=== PATIENT | female | born 1955 | race Two or more races ===

== ENCOUNTER 2023-04-29 00:06 | Emergency (ER) | payer MEDICARE, OTHER, SELFPAY ==
[2023-04-29 00:10] VITALS: BP 156/76; PULSE 86; RESP 20; TEMP 36.8; O2SAT 99; BMI 27.7
--- NOTE | 2023-04-29 00:21 | XR_ITS ---
The [address] [address] Patient Name: DAISY CARLSON MRN: [id number] date: 1955 Sex: F Assigned Patient Location: ED.MAIN Current Patient Location: ED.MAIN Accession/Order Number: [id number] Exam Date: 04/29/2023 00:30 Report Date: 04/29/2023 01:17 At the request of: LUKE NGUYEN Procedure: XR chest 1V EXAMINATION: XR chest 1V HISTORY: sob dyspnea, chest tightness. COMPARISON: 11/06/2022 FINDINGS: There is no focal airspace consolidation. There is no appreciable pneumothorax or pleural effusion. The pulmonary vascularity is within normal limits for technique. The cardiomediastinal silhouette is within normal limits. XR/XR chest 1V IMPRESSION: Lungs are clear. No acute cardiopulmonary disease. Electronically authenticated by: OCTAVIANO HERNANDEZ Date: 04/29/2023 01:17
--- NOTE | 2023-04-29 00:21 | ECG_ITS ---
The [facility] Test Date: 2023-04-29 Pat Name: Johana Gottlieb Department: Room: - Gender: Female R D Internship: : 1955 Requested By: [id number] Order Number: [id number] Reading MD: SHIRA WALTERS Measurements Intervals [place] Rate: 79 P: 23 IA: 156 QRS: 37 QRSD: 86 T: 61 QT: 348 QTc: 382 Interpretive Statements 1100 Sinus rhythm 9110 normal ECG No previous ECG available for comparison Electronically Signed On 04-30-2023 18:24:39 EDT by SHIRA WALTERS
[2023-04-29 00:40] LABS: Basophils Absolute Auto 0.1 10^3/uL (0.0-0.1); Basophils Percent Auto 0.9 % (0.2-2.0); Eosinophils Absolute Auto 0.2 10^3/uL (0.0-0.7); Eosinophils Percent Auto 2.6 % (0.9-7.0); Hematocrit 36.2 % (36.0-48.0); Hemoglobin 11.8 g/dL (12.0-16.0); Immature Granulocytes Abs Auto 0.01 10^3/uL (0.00-0.03); Immature Granulocytes Pct Auto 0.2 % (0.0-0.5); Lymphocytes Absolute Auto 2.2 10^3/uL (1.2-3.8); Lymphocytes Percent Auto 38.5 % (20.5-60.0); Mean Corpuscular HGB Conc 32.6 g/dL (29.9-35.2); Mean Corpuscular Hemoglobin 29.8 pg (26.7-34.0); Mean Corpuscular Volume 91.4 fL (81.0-99.0); Mean Platelet Volume 9.3 fL (9.5-13.5); Monocytes Absolute Auto 1.2 10^3/uL (0.3-0.8); Monocytes Percent Auto 21.2 % (1.7-12.0); Neutrophils Absolute Auto 2.1 10^3/uL (1.4-6.5); Neutrophils Percent Auto 36.6 % (43.0-75.0); Platelet Count 323 10^3/uL (150-450); Red Blood Count 3.96 10^6/uL (4.20-5.40); Red Cell Distribution Width 14.1 % (11.0-15.0); White Blood Count 5.8 10^3/uL (4.0-11.0)
[2023-04-29 00:54] LABS: Alanine Aminotransferase 62 U/L (14-59); Albumin Globulin Ratio 0.9; Alkaline Phosphatase 112 U/L (46-116); Anion Gap 10.8; Aspartate Amino Transferase 69 U/L (15-37); Bilirubin Total 0.5 mg/dL (0.2-1.0); Calcium 9.5 mg/dL (8.5-10.1); Carbon Dioxide 28.3 mmol/L (21.0-32.0); Chloride 102 mmol/L (98-107); D Dimer 0.54 mg/L FEU (<=0.59); Estimated GFR (African America >60 (>=60); Estimated GFR (Non-African Ame >60 (>=60); Globulin 4.4 g/dL; Glucose 96 mg/dL (74-106); Potassium 4.1 mmol/L (3.5-5.1); Sodium 137 mmol/L (136-145); Total Protein 8.4 g/dL (6.4-8.2)
[2023-04-29 00:57] VITALS: PULSE 84; RESP 17; O2SAT 99
[2023-04-29 00:57] LABS: Troponin I High Sensitivity 4.2 pg/mL (4.0-51.3)
[2023-04-29] MEDS: ALBUTEROL SULFATE 2.5 MG/3 ML VIAL NEB IH ×2 (00:57→03:15)
--- NOTE | 2023-04-29 01:40 | ED.SOB1 ---
HPI - SOB/Dyspnea General Chief Complaint: Shortness of Breath/Dyspnea Stated Complaint: covid + Time Seen by Provider: 04/29/23 00:21 Source: patient Mode of arrival: walk-in Limitations: no limitations History of Present Illness HPI Narrative: The patient is coming to us with retrosternal pressure-like feeling that is associated with taking a deep breath that started a few hours earlier she was diagnosed with COVID-19 almost 2 days ago when she was started on Paxil with as well The patient denies any nausea vomiting and decreased p.o. intake she has been hydrating well and she also denies any diarrhea She does have history of asthma and she does not have her albuterol inhaler Related Data Previous Rx's Medication Instructions Recorded albuterol sulfate 90 mcg/actuation 2 inh inhalation Q6H PRN shortness 04/29/23 aerosol inhaler of breath or wheezing #8.5 grams Allergies Allergy/AdvReac Type Severity Reaction Status Date / Time No Known Drug Allergies Allergy Verified 04/29/23 00:18 Review of Systems ROS Status of ROS 10 or more systems reviewed and unremarkable except as noted in history and below PFSH PFS Social History Smoking status: Never smoker Exam Narrative Exam Narrative: Nurses notes and vital signs reviewed and patient is not hypoxic. General: Well-appearing and in no apparent distress. Skin: Warm, dry, no pallor noted. No rash. Head: Normocephalic, atraumatic. Neck: Supple, non-tender. Eye: Pupils are equal, round and EOMI. No scleral icterus. Ears, Nose, Mouth, and Throat: TM are clear, no nasal mucosal hypertrophy. Oral mucosa is moist, no posterior oropharynx erythema, uvula is mid-line Cardiovascular: Regular Rate and Rhythm without murmur, gallop or rub. Respiratory: No accessory muscle use or respiratory distress. Lungs decreased air entry in the bases and no wheezes Chest Wall: no tenderness Back: No midline thoracic or lumbar vertebral tenderness. No CVA tenderness Musculoskeletal: normal ROM, no calf or popliteal tenderness, no lower extremity edema/swelling GI: Abdomen is soft, non-distended. Normal bowel sounds. No masses appreciated. No tenderness to palpation. No rebound, guarding, or rigidity noted. Neurological: A&O x4. No cranial nerve dysfunction observed. No truncal ataxia. Moves all extremities. Sensation intact. Psychiatric: Cooperative and interactive. Normal mood and affect. Constitutional Vital Signs, click to edit/add: Last Vital Signs Temp 98.2 F 04/29/23 00:10 Pulse 90 04/29/23 03:15 Resp 18 04/29/23 03:15 BP 156/76 H 04/29/23 00:10 Pulse Ox 99 04/29/23 03:15 O2 Del Method Room Air 04/29/23 00:57 Course Vital Signs Vital signs: Vital Signs Temperature 98.2 F 04/29/23 00:10 Pulse Rate 86 04/29/23 00:10 Respiratory Rate 20 04/29/23 00:10 Blood Pressure 156/76 H 04/29/23 00:10 Pulse Oximetry 99 04/29/23 00:10 Oxygen Delivery Method Room Air 04/29/23 00:10 Temperature 98.2 F 04/29/23 00:10 Pulse Rate 90 04/29/23 03:15 Respiratory Rate 18 04/29/23 03:15 Blood Pressure 156/76 H 04/29/23 00:10 Pulse Oximetry 99 04/29/23 03:15 Oxygen Delivery Method Room Air 04/29/23 00:57 MDM - SOB/Dyspnea MDM Narrative Medical decision making narrative: The patient EKG upon presentation showing sinus rhythm with a heart rate of [address] elevation or depression CBC and chemistry showed no acute pathology and the patient chest x-ray was within normal Troponin repeated twice is negative and the patient was feeling much better after breathing treatment and Solu-Medrol I did not provide the patient with a prescription for prednisone due to the fact that she take Paxlovid to avoid interaction Right now the patient will be discharged home with her albuterol inhaler to use as needed The patient is to follow up with primary care physician in next 2-3 days or to return to the emergency department should any of the signs or symptoms worsen or new symptoms develop. The patient agrees with the following Diagnosis and Treatment plan and the patient will be discharged home. Lab Data Labs: Lab Results 04/29/23 04/29/23 Range/Units 00:30 02:50 WBC 5.8 (4.0-11.0) 10^3/uL RBC 3.96 L (4.20-5.40) 10^6/uL Hgb 11.8 L (12.0-16.0) g/dL Hct 36.2 (36.0-48.0) % MCV 91.4 (81.0-99.0) fL MCH 29.8 (26.7-34.0) pg MCHC 32.6 (29.9-35.2) g/dL RDW 14.1 (11.0-15.0) % Plt Count 323 (150-450) 10^3/uL MPV 9.3 L (9.5-13.5) fL Neut % (Auto) 36.6 L (43.0-75.0) % Lymph % (Auto) 38.5 (20.5-60.0) % [place] % (Auto) 21.2 H (1.7-12.0) % Eos % (Auto) 2.6 (0.9-7.0) % Baso % (Auto) 0.9 (0.2-2.0) % Neut # (Auto) 2.1 (1.4-6.5) 10^3/uL Lymph # (Auto) 2.2 (1.2-3.8) 10^3/uL [place] # (Auto) 1.2 H (0.3-0.8) 10^3/uL Eos # (Auto) 0.2 (0.0-0.7) 10^3/uL Baso # (Auto) 0.1 (0.0-0.1) 10^3/uL Abs Immat Gran (auto) 0.01 (0.00-0.03) 10^3/uL Imm/Tot Granulo (auto) 0.2 (0.0-0.5) % D-Dimer 0.54 (<=0.59) mg/L FEU Sodium 137 (136-145) mmol/L Potassium 4.1 (3.5-5.1) mmol/L Chloride 102 (98-107) mmol/L Carbon Dioxide 28.3 (21.0-32.0) mmol/L Anion Gap 10.8 BUN 8.0 (7.0-18.0) mg/dL Creatinine 0.80 (0.55-1.02) mg/dL Est GFR ( Amer) >60 (>=60) Est GFR (Non-Af Amer) >60 (>=60) BUN/Creatinine Ratio 10.0 Glucose 96 (74-106) mg/dL Calcium 9.5 (8.5-10.1) mg/dL Total Bilirubin 0.5 (0.2-1.0) mg/dL AST 69 H (15-37) U/L ALT 62 H (14-59) U/L Alkaline Phosphatase 112 (46-116) U/L Troponin I High Sens 4.2 4.1 (4.0-51.3) pg/mL Total Protein 8.4 H (6.4-8.2) g/dL Albumin 4.0 (3.4-5.0) g/dL Globulin 4.4 g/dL Albumin/Globulin Ratio 0.9 Discharge Plan Discharge Chief Complaint: Shortness of Breath/Dyspnea Clinical Impression: Asthma exacerbation, COVID-19 Patient Disposition: Home, Self-Care Time of Disposition Decision: 03:20 Condition: Good Mode of Transportation: Private Vehicle Prescriptions / Home Meds: New albuterol sulfate 90 mcg/actuation HFA aerosol inhaler 2 inh inhalation Q6H PRN (Reason: shortness of breath or wheezing) Qty: 8.5 0RF Instructions: Asthma (ED), COVID-19 (Coronavirus Disease 2019) (ED) Stand Alone Forms: Portal Instructions Referrals: SILVIA SINCLAIR [Primary Care Provider] - 1 week
[2023-04-29 03:11] LABS: Troponin I High Sensitivity 4.1 pg/mL (4.0-51.3)
[2023-04-29 03:15] VITALS: PULSE 90; RESP 18; O2SAT 99
[2023-04-29] MEDS: METHYLPREDNISOLONE SOD SUCC PF 125 MG/2 ML VIAL 60 MG IVP (03:27)
[2023-04-29] MEDS: ALBUTEROL SULFATE 200 PUFF/6.7 GM INHALER IH (03:37)
--- NOTE | 2023-04-29 04:17 | RESP.RT ---
2 puffs given and MDI sent home with patient
== END 2023-04-29 03:40 | disposition home or self-care (01) ==
PROVIDERS: Emergency Provider Emergency Medicine; PCP Family Medicine
DX: J45.901 Unspecified asthma with (acute) exacerbation (principal); U07.1 COVID-19
CPT/HCPCS: 36415; 71045; 80053; 84484; 85025; 85378; 93005; 94640; 96374; 99285; J2930

== ENCOUNTER 2025-03-03 12:53 | Emergency (ER) | payer MEDICARE, OTHER, SELFPAY ==
[2025-03-03 12:57] VITALS: BP 125/72; PULSE 94; TEMP 36.8; O2SAT 98; BMI 30.3
--- OUTSIDE RECORDS SUMMARY | 2025-03-03 13:00 | XMS_ITS | Encounter Summary ---
Author Organization [facility] [facility] tem Address [id number] [address] [place] [address] Care Team Providers Care Case Loader Operator Name Role Phone Anabell Prescott MD Primary Care Provider [phone] Encounter Details Date Type Department Care Team (Latest Contact Info) Description 02/21/2025 Travel Social History Tobacco Use Types Packs/Day Years Used Date Smoking Tobacco: Former Cigarettes 1999 Smokeless Tobacco: Never Comments:quit > 20 years ago Alcohol Use Standard Drinks/Week Comments No 0 (1 standard drink = 0.6 oz pur e alcohol) Childcare Answer Date Recorded Childcare Unknown 03/13/2019 Employment Answer Date Recorded Employment Unknown 03/13/2019 Hunger Screening Answer Date Recorded Within the past 12 months we worried whether our food would run out before we got money to buy more. Never True 10/23/2024 Within the past 12 months th e food we bought just didn't last and we didn't have money to get more. Never True 10/23/2024 Purpose - Life Answer Date Recorded Purpose and direction in life Unknown Comments No Sex and Gender Information Value Date Recorded Sex Assigned at Female 01/02/2023 9:46 AM EDT Legal Sex Female 11:26 AM EDT Gender Identity Female 01/02/2023 9:46 AM EDT Sexual Orientation Straight 01/02/2023 9: 46 AM EDT documented as of this encounter Plan of Treatment Upcoming Encounters Date Type Department Care Team (Late st Contact Info) Description 10/27/2025 1:15 PM EST Office Visit [facility] [address] [facility] [place] [address] [phone] Alejandro Vega MD [address] [place] [address] documented as of this encounter Visit Diagnoses Not on filedocumented in this encounter Care Teams Case Loader Operator Relationship Specialty Start Date End Date Anabell Prescott MD [address] [place] [address] PCP - General Family Medicine 06/16/17 documented as of this encounter
--- OUTSIDE RECORDS SUMMARY | 2025-03-03 13:00 | XMS_ITS | Encounter Summary ---
Author Organization [facility] Address [address] [place] [address] Care Team Providers Care Machine Ceramic Coater Name Role Phone Anabell Prescott MD Unavailable [phone] Anabell Prescott MD Primary Care Provider [phone] Encounter Details Date Type Department Care Team (Late st Contact Info) Description 10/12/2023 External Result Encounter [facility] External Department Unsolicited Russ Pacheco, DO [address] [place] [address] Social History Tobacco Use Types Packs/Day Years Used Date Smoking Tobacco: Never Smokeless Tobacco: Never Alcohol Use Standard Drinks/Week Comments Not Currently 0 (1 standard drink = 0.6 oz pure alcohol) Caffeine intake : 1-2 cups per day tea Humiliation, Afraid, Rape, and Kick questionnair e Answer Date Recorded Within the last year, have y ou been afraid of your partner or ex-partner? No 10/09/2023 Within the last year, have y ou been humiliated or emotionally abused in other ways by your partner or ex-partner? No Within the last year, have y ou been kicked, hit, slapped, or otherwise physically hurt by your partner or ex-partner? No 10/09/2023 Within the last year, have y ou been raped or forced to have any kind of sexual activity by your partner or ex-partner? No 10/09/2023 Social Connection and Isolat ion Panel [NHANES] Answer Date Recorded In a typical week, how many times do you talk on the phone with family, friends, or neighbors? Twice a week 10/09/2023 How often do you get togethe r with friends or relatives? Once a week 10/09/2023 How often do you attend chur or sikhism services? More than 4 times per year 10/09/2023 Do you belong to any clubs o r organizations such as anabaptist groups, unions, fraternal or athletic groups, or school groups? No 10/09/2023 How often do you attend meet ings of the clubs or organizations you belong to? Never 10/09/2023 Are you , , di vorced, , never , or living with a partner? Living with partner 10/09/2023 AUDIT-C Answer Date Recorded Frequency of Alcohol Consumption Not on file 10/09/2023 Q2: How many drinks containi ng alcohol do you have on a typical day when you are drinking? Patient does not drink Q3: How often do you have si x or more drinks on one occasion? Never 10/09/2023 Overall Financial Resource Strain (CARDIA) Answe r Date Recorded How hard is it for you to pa y for the very basics like food, housing, medical care, and heating? Not hard at all 10/09/2023 PHQ-2 Answer Date Recorded Patient Health Questionnaire-2 Score 0 09/22/2023 [facility] Questionnaire Answer Date Recorded Do you feel stress - tense, restless, nervous, or anxious, or unable to sleep at night because your mind is troubled all the time - these days? Not at all 10/09/2023 Exercise Vital Sign Answer Date Recorde d On average, how many days pe r week do you engage in moderate to strenuous exercise (like a brisk walk)? 3 days 10/09/2023 On average, how many minutes do you engage in exercise at this level? 40 min 10/09/2023 Hunger Vital Sign Answer Date Recorded Within the past 12 months, y ou worried that your food would run out before you got the money to buy more. Never true 10/09/19 24 Within the past 12 months, t he food you bought just didn't last and you didn't have money to get more. Never true 10/09/2023 PRAPARE - Transportation Answer Date Re corded In the past 12 months, has l ack of transportation kept you from medical appointments or from getting medications? No 05/2024 In the past 12 months, has l ack of transportation kept you from meetings, work, or from getting things needed for daily living? No 10/09/2023 Housing Stability Vital Sign Answer Jose e Recorded In the last 12 months, was t here a time when you were not able to pay the mortgage or rent on time? No 10/09/2023 In the last 12 months, how many places have you lived? 1 10/09/2023 In the last 12 months, was t here a time when you did not have a steady place to sleep or slept in a chcf (including now)? No 10/09/2023 Comments Unknown Sex and Gender Information Value Date Recorded Sex Assigned at Female 02/28/2023 3:18 PM EDT Legal Sex Female 6:34 PM EDT Gender Identity Female 02/28/2023 3:18 PM EDT Sexual Orientation Straight 02/28/2023 3: 18 PM EDT Occupation Industry Job Start Date Job End Date retiredd Not on file Not on file Not on file documented as of this encounter Plan of Treatment Not on file documented as of this encounter Procedures Procedure Name Priority Date/Time Associated Diagnosis Comments ECG 12-LEAD 10/12/2023 3:39 PM EST documented in this encounter Results * ECG 12 lead (10/12/2023 3:39 PM EST) 10/12/2023 3:39 PM EST [facility] - 10/14/2023 1:31 AM EST [facility] Main [place] [id number] Electrocardiograph Report Signed Patient: Johana Gottlieb MR#: [id number] 3 : 1955 Acct:[id number] Age/Sex: 67 / F ADM Date: 10/12/23 Loc: PS Room: Type: [facility] CLI Attending Dr: Russ Pacheco DO Ordering Provider: Russ Pacheco DO Date of Service: 10/12/2308/25/1527 ECG/ECG 12 lead ECG: PST Copies to: Test Reason : Blood Pressure : / mmHG Vent. Rate : 070 BPM Atrial Rate : 070 BPM P-R Int : 130 ms QRS Dur : 090 ms QT Int : 394 ms P-R-T Axes : 024 034 051 degrees QTc Int : 425 ms Normal sinus rhythm Cannot rule out Anterior infarct , age undetermined Abnormal ECG When compared with ECG of 31-MAR-2022 10:09, No significant change was found Confirmed by Steve Mckay ([id number]) on 10/13/2023 6:38:43 PM Referred By: GLENNY Electronically Signed By:Steve Mckay Transcribed By: MUS Signed By Steve Mckay MD 10/13/23 1838 Procedure Note Jaky Mckay MD - 10/14/2023 [facility] [place] [address] Electrocardiograph Report Signed Patient: Johana Gottlieb LMR#: [id number] 3 : 5Acct:[id number] Age/Sex: 67 / FADM Date: 10/12/23 Loc: PS Room:Type: [facility] CLI Attending Dr: Russ Pacheco DO Ordering Provider: Russ Pacheco DO Date of Service: 10/12/2308/25/1527 ECG/ECG 12 lead ECG: PST Copies to: Test Reason : Blood Pressure : / mmHG Vent. Rate : 070 BPM Atrial Rate : 070 BPM P-R Int : 130 ms QRS Dur : 090 ms QT Int : 394 ms P-R-T Axes : 024 034 051 degrees QTc Int : 425 ms Normal sinus rhythm Cannot rule out Anterior infarct , age undetermined Abnormal ECG When compared with ECG of 31-MAR-2022 10:09, No significant change was found Confirmed by Steve Mckay ([id number]) on 10/13/2023 6:38:43 PM Referred By: GLENNY Electronically Signed By:Steve Mckay Transcribed By: JORDANA Signed By Steve Mckay MD 10/13/23 5082 us Russ Pacheco DO ECG ORDERABLES Final Resul t [facility] [address] [place] [address], documented in this encounter Visit Diagnoses Not on filedocumented in this encounter Additional Health Concerns Assessment Noted Time PHQ-9 Depression Total Score: 3 09/19/20 10:42 AM EST documented as of this encounter Care Teams Machine Ceramic Coater Relationship Specialty Start Date End Date Anabell Prescott MD [address] [facility] [place] [address] PCP - ACO Reach 02/23/23 Anabell Prescott MD [address] [place] [address] PCP - General Family Medicine 03/09/23 documented as of this encounter
--- OUTSIDE RECORDS SUMMARY | 2025-03-03 13:00 | XMS_ITS | Referral Summary ---
Author Organization [facility] Address [address] [place] [address] Care Team Providers Care Seismograph Computer Name Role Phone Unavailable Primary Care Provider Unavailabl e Social History Tobacco Use Types Packs/Day Years Used Date Smoking Tobacco: Never Assessed [place] Safety & Environment Answer Date Rec orded Fear of Current or Ex-Partner Not on file Emotionally Abused Not on file 11/23/2023 Physically Abused Not on file 11/23/2023 Sexually Abused Not on file 11/23/2023 Physically or Sexually Abused Not on file Sex and Gender Information Value Date Recorded Sex Assigned at Not on file Gender Identity Not on file Sexual Orientation Not on file Plan of Treatment Not on file
--- OUTSIDE RECORDS SUMMARY | 2025-03-03 13:00 | XMS_ITS | Encounter Summary ---
Author Organization [facility] Address [address] [place] [address] Care Team Providers Care Supervisor Pleating Name Role Phone Anabell Prescott MD Unavailable Anabell Prescott MD Primary Care Provider [phone] Reason for Visit * Reason Comments Med Refill Encounter Details Date Type Department Care Team (Late st Contact Info) Description 02/22/2024 Refill [facility] [address] [place] [address] Anabell Prescott MD [address] [place], [place] [phone] Acquired hypothyroidism (CMS/HCC) (Primary Dx) Social History Tobacco Use Types Packs/Day Years Used Date Smoking Tobacco: Never Smokeless Tobacco: Never Alcohol Use Standard Drinks/Week Comments Not Currently 0 (1 standard drink = 0.6 oz pure alcohol) Caffeine intake : 1 cups per day tea Humiliation, Afraid, Rape, [...] 10/09/2023 How often do you attend chur ch or tenriism services? More than 4 times per year [...] Date Recorded Patient Health Questionnaire-2 Score 0 02/19/2024 [facility] - Occupational Stress Questionnaire Answer Date Recorded [...] place to sleep or slept in a assisted (including now)? No 10/09/2023 Comments Unknown Sex [...] on file documented as of this encounter Visit Diagnoses Diagnosis Acquired hypothyroidism (CMS/HCC)- Primary Unspecified hypothyroidism documented in this encounter Additional Health Concerns Assessment Noted Time PHQ-9 Depression Total Score: 3 09/19/20 23 10:42 AM EST documented as of this encounter Care Teams Supervisor Pleating Relationship Specialty Start Date End Date Anabell Prescott MD [address] [place] [address] PCP - ACO Reach 02/23/23 Anabell Prescott MD [address] [place] [address] PCP - General Family Medicine 03/09/23 documented as of this encounter
--- OUTSIDE RECORDS SUMMARY | 2025-03-03 13:00 | XMS_ITS | Encounter Summary ---
Author Organization [facility] Address [address] [place] [address] Care Team Providers Care Environmental Services Technician Name Role Phone Anabell Prescott MD Unavailable Anabell Prescott MD Primary Care Provider [phone] Reason for Visit * Reason Comments Med Refill Encounter Details Date Type Department Care Team (Late st Contact Info) Description 05/19/2023 Refill [facility] [address] [place] [address] Anabell Prescott MD [address] [place], [place] [phone] Major depressive disorder, recurrent episode, moderate (HCC) (CMS/HCC) (Primary Dx) Social History Tobacco Use Types Packs/Day Years Used Date Smoking Tobacco: Never Smokeless Tobacco: Never Alcohol Use Standard Drinks/Week Comments Never 0 (1 standard drink = 0.6 oz pur e alcohol) caffeine: 1-2 cups per day tea PHQ-2 Answer Date Recorded Patient Health Questionnaire-2 Score 2 03/22/2023 Comments Unknown Sex and Gender Information Value Date Recorded Sex Assigned at Female 02/28/2023 3:18 PM EDT Legal Sex Female 6:34 PM EDT Gender Identity Female 02/28/2023 3:18 PM EDT Sexual Orientation Straight 02/28/2023 3: 18 PM EDT Occupation Industry Job Start Date Job End Date retiredd Not on file Not on file Not on file documented as of this encounter Miscellaneous Notes * Telephone Encounter - Anabell Prescott MD - 05/19/2023 4:40 PM EDT Approving, but needs appt for additional refills. documented in this encounter Plan of Treatment Not on file documented as of this encounter Visit Diagnoses Diagnosis Major depressive disorder, recurrent episode, moderate (CMS/[facility])- Primary Major depressive disorder, recurrent episode, moderate documented in this encounter Care Teams Environmental Services Technician Relationship Specialty Start Date End Date Anabell Prescott MD [address] [place] [address] PCP - ACO Reach 02/23/23 Anabell Prescott MD [address] [place] [address] PCP - General Family Medicine 03/09/23 documented as of this encounter
--- OUTSIDE RECORDS SUMMARY | 2025-03-03 13:00 | XMS_ITS | Encounter Summary ---
Author Organization [employer] Address [id number] [address] [place] [address] Care Team Providers Care Tool Hardener Name Role Phone Anabell Prescott MD Primary Care Provider [phone] Reason for Visit * Reason Comments Med Refill Encounter Details Date Type Department Care Team (Late st Contact Info) Description 09/19/2023 Refill [facility] [address] [place] [address] [place] [address] [place] [phone] Alejandro Vega MD [address] [place] [address] Stress incontinence of urine Social History Tobacco Use Types Packs/Day Years Used Date Smoking Tobacco: Former Cigarettes 1 993 - 1999 Smokeless Tobacco: Never Comments:quit > 20 [...] got money to buy more. Never True 08/28/2023 Within the past 12 months th e food we bought just didn't last and we didn't have money to get more. Never True 08/28/2023 Purpose - Life Answer Date Recorded Purpose [...] Description 10/27/2025 1:15 PM EST Office Visit [facility] [address] [place] [address] [place] [address] [place] [phone] Alejandro Vega MD [address] [place] [id number] documented as of this encounter Visit Diagnoses Diagnosis Stress incontinence of urine documented in this encounter Care Teams Tool Hardener Relationship Specialty Start Date End Date Anabell Prescott MD [address] [place], [place] [phone] PCP - General Family Medicine 06/16/17 documented as of this encounter
--- OUTSIDE RECORDS SUMMARY | 2025-03-03 13:00 | XMS_ITS | Clinical Summary ---
Author Organization [employer] tem Address [id number] [address] [place] [address] Care Team Providers Care Bridge Crane Operator Name Role Phone Anabell Prescott MD Primary Care Provider [phone] Allergies Active Allergy Reactions Criticality Noted Date Comments Latex, Natural Rubber 04/17/2023 rash Medications albuterol (PROVENTIL HFA;VENTOLIN HFA) 90 mcg/actuation inhaler Inhale 2 puffs every 6 (six) hours as needed for wheezing. Has not used since 11/2020 Active levothyroxine (SYNTHROID, LEVOTHROID) 100 MCG tablet Take 1 tablet (100 mcg total) by mouth in the morning. Active traZODone (DESYREL) 100 mg tablet Take 1 tablet (100 mg total) by mouth as needed. Has not used since 11/2020 Active omeprazole (PriLOSEC) 40 mg capsule Take 1 capsule (40 mg total) by mouth in the morning. 1 Active plecanatide (TRULANCE) 3 mg tablet Take 3 mg by mouth in the morning. Active alendronate (FOSAMAX) 70 mg/75 mL solution Take 75 mL (70 mg total) by mouth every 7 days. In a.m. with water on empty stomach, nothing else by mouth and remain upright for 30min Active oxaprozin (DAYPRO) 600 mg tablet Take 1 tablet (600 mg total) by mouth in the morning and 1 tablet (600 mg total) in the evening. Take with meals. 3 Active traMADoL (ULTRAM) 50 mg tablet Take 1 tablet (50 mg total) by mouth 2 (two) times a day as needed. 3 Active fluticasone propionate (FLOVENT HFA) 110 mcg/actuation inhalerIndicati ons:maintenance therapy for asthma Inhale 1 puff in the morning and 1 puff before bedtime. Indications: controller medication for asthma. As needed. Active FLUoxetine (PROzac) 20 mg capsule take 1 capsule by mouth every morning Active atorvastatin (LIPITOR) 20 mg tablet take 1 tablet by mouth every morning 90 tablet 4 Active cefaDROXil (DURICEF) 500 mg capsule Take 1 capsule (500 mg total) by mouth in the morning and 1 capsule (500 mg total) before bedtime. Do all this for 7 days. 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 Does have very good urine volume. Super saturation numbers are reasonable. Citrate excellent as well. Plan: Can maintain this hydration status this point will monitor. KUB 1 year ==== 06/21/2023 ==== will initiate 24 hr litho link x1. Ca++ 9.07 March 2023 ==== 03/22/2023 ==== after treatment of her current stone the right probably initiate repeat mineral metabolism workup after her parathyroidectomy. ==== 06/13/2022 ==== #### April 05, 2022 had 1 parathyroid removed. Result in serum calcium slightly above 10 parathyroid hormone lower than previous and within normal range. ==== 06/02/2021 ==== parathyroid hormone normal high normal but normal serum calcium high normal. Interestingly urinary calcium is fine super saturation number slightly high primarily driven by both citrate as well as urine volume. Plan: Drink enough to make 2 to 2.5 L urine a day. Citrate supplementation in addition to the lemonade she is consuming. Return clinic 1 year KUB ==== 04/21/2021 ==== New problem, additional workup planned. multiple stones over years. Serum calcium high normal as well. Plan: 24 urine litho link. Parathyroid hormone. Repeat serum calcium. Stress incontinence 10/28/2020 Increased urinary frequency 05/23/2018 Overview (10/28/2020): ====10/28/20==== recent issues with stress incontinence and increased frequency on tolterodine 2mg. We will increase her to 4mg daily. She will also work on pelvic floor exercises. We discussed that cystoscopy/urodynamics may be necessary before determining further management. ==== 05/23/2018 ==== history over time of urinary frequency. Variable strength stream. Nocturia. His on tolterodine 2 mg. Has had some benefit but still bothered by her lower urinary tract domain. History of stones in the past as well. ==== 08/01/2018 ==== ### s/p cysto and urethral dilation and U-M solution---has had acceptable improvement in her symptoms. ==== 11/07/2018 ==== by patient report her symptoms are stable and acceptable Assessment & Plan (10/28/2020 9:51 AM EST): We will schedule her to see Dr. Vega in about 1-2 months. I asked her to call sooner if any problems. Assessment & Plan (08/01/2018 11:59 AM EDT): This point will hold off on monitor. See her back in 3 mo. Stay on tolterodine Kidney stones 05/23/2018 Overview (10/23/2024): ====10/23/24====Stable stones on KUB. Has had some abdominal cramping and there was an area of opacification in the left hemipelvis on KUB. She would like to proceed with CT ==== 06/21/2023 ==== right stone treated. Stent removal. Bilateral jets noted on ultrasound that demonstrates antegrade flow. Potential very small residual calculi after Laser lithotripsy. ==== 03/22/2023 ==== right UPJ stone. 5 mm. The few weeks back she did have elevated white count no fevers no chills. Urinalysis not impressive. Plan: Continue on medical expulsive therapy. Urine for culture.. Duricef. Plan for right ureteroscopy to treat the stone in the ureter as well as the larger stones that are nonobstructing. Pt agrees with plan. ====02/15/23==== recent right-sided back pain. We will send urine for microscopic exam and culture. We will check KUB. In the meantime, she will start Flomax and will strain her urine ==== 04/21/2021 ==== #### s/p left ureteroscopy holmium laser lithotripsy left stent. Left stent removal. Follow-up renal ultrasound negative for hydronephrosis ====02/17/21====See below. Stone is visible on KUB. No obvious right ureteral stone ====02/17/21====5mm proximal left ureteral stone along with several intrarenal stones. Requesting ESWL and would like to avoid ureteroscopy if possible. Will check KUB to see if she would be a good candidate. ====10/29/20====BMP and PTH normal. KUB with 2 stones in each kidney-will address at follow-up ====10/28/20==== no recent issues. She thinks she was diagnosed with hypercalcemia but doesn't remember details. We will have her get a KUB. We will also check BMP and PTH. I will call her with the results. ==== 05/23/2018 ==== history kidney stones in the past. Distal right ureteroscopy in 2013- by Dr. Salazar. ==== 08/01/2018 ==== renal ultrasound discuss is bilateral calculi. Ultrasound can certainly over call stones. Will see her back in 3 months with a KUB. ==== 11/07/2018 ==== no interval colic. No acute KUB done yet. Will obtain KUB in 6 months Assessment & Plan (10/23/2024 1:52 PM EST): I will notify her of the CT results through [facility]. Assuming this is unremarkable, we will see her back in 1 year with a KUB Assessment & Plan (02/15/2023 5:10 PM EDT): She says she does have some tramadol on hand in case it is needed. Assessment & Plan (02/17/2021 1:30 PM EDT): I told her to return to the ER if fever or uncontrolled symptoms. She did start to have some right-sided abdominal pain as well. We will look for movement of any of her stones on her x-ray today. I stressed importance of going to the ER immediately if anuria. I did do her preop history and physical in the office today. We will get an EKG as well in preparation for surgery Assessment & Plan (10/28/2020 9:52 AM EST): UA today does dip for trace blood. We will send for microscopic exam and call her if positive Assessment & Plan (05/23/2018 3:41 PM EDT): Will see what renal bladder ultrasound demonstrates Encounters Date Type Department Care Team Description 02/21/2025 Travel 02/20/2025 Telephone [facility] [address] [place] [address] Sammi Hernandez CMA 02/19/2025 Travel from Last 3 Months Family History Medical History Relation Name Comments Other Brother 1 MVA Breast cancer Cousin Prostate cancer Father juan mcpherson also had stomach cancer Arthritis Mother nasra mcpherson Cancer Mother nasra mcpherson Throat cancer Mother nasra mcpherson Anesthesia problems Neg Hx Bleeding Disorder Neg Hx Clotting disorder Neg Hx Colon cancer Neg Hx Heart attack Neg Hx Nephrolithiasis Neg Hx Ovarian cancer Neg Hx Stroke Neg Hx Relation Name Status Comments Brother 1 Brother 2 Alive Brother 3 Alive Brother 4 Alive Cousin Father juan mcpherson Alive Maternal Grandfather Maternal Grandmother Mother nasra mcpherson Paternal Grandfather Paternal Grandmother Sister 1 Alive Sister 2 Alive Social History Tobacco Use Types Packs/Day Years Used Date Smoking Tobacco: Former Cigarettes 1 - 1999 Smokeless Tobacco: Never Tobacco Cessation:Counseling Given: Not Answered Comments:quit > 20 years ago Alcohol Use [...] Orientation Straight 01/02/2023 9: 46 AM EDT Last Filed Vital Signs Vital Sign Reading Time Taken Comments Blood Pressure 113/77 10/23/2024 1:35 PM EST Pulse 77 10/23/2024 1:35 PM EST Temperature 36.5 C (97.7 F) 06/08/2023 10:32 AM EDT Respiratory Rate 16 06/08/2023 12:10 PM EDT Oxygen Saturation 100% 06/08/2023 12:10 PM EDT Inhaled Oxygen Concentration - - Weight 70.3 kg (155 lb) 10/23/2024 1:35 PM EST Height 152.4 cm (5') 10/23/2024 1:35 PM EST Body Mass Index 30.27 10/23/2024 1:35 PM EST Plan of Treatment Upcoming Encounters Date Type Department Care Team (Late st Contact Info) Description 10/27/2025 1:15 PM EST Office Visit [facility] [address] [place] [address] [address] [facility] [place] [address] Alejandro Vega MD [address] [place] [address] Health Maintenance Due Date Last Done Comments Depression Screening 1967 Adult BMI Follow Up Plan 1972 Fall Risk Screening 12/12/2019 DTaP,Tdap and Td Vaccines (3 - Td or Tdap) 11/08/2023 11/08/2013, 10/02/1997 COVID-19 Vaccine (2023-2 5 season) 2024 07/01/2024, 09/22/2023, 06/12/2023, Additional history exists Influenza Vaccine 06/02/2025 07/01/2024, , 07/19/2022, Additional history exists Adult BMI Screening 10/23/2025 10/23/2024 Tobacco Screening 10/23/2025 10/23/2024 Zoster (Shingles) Vaccine Completed 2021, 07/19/2022, 04/28/2014 Medical Devices Explanted Type Area Tow Driver Device Identifier Shelf Expiration Date Model / Serial / Lot Stnt Uret 6fr 26cm Pgtl Crv - [id number] - [id number] Implanted:Qty: 1 on 02/19/2021 by Alejandro Vega MD at [facility] Explanted:Qty: 1 on 03/03/2021 by Alejandro Vega MD at [facility] Stent Left: Ureter [employer]ovo UROLOGY 11/05/2023 [id number] / [id number] / [id number] Stent Uret 6fr 26cm 2 Pgtl Crv Rdpq Pstnr Brd [facility] [id number] - [id number] Implanted:Qty: 1 on 05/26/2023 by Alejandro Vega MD at [facility] Explanted:Qty: 1 on 06/01/2023 by Alejandro Vega MD at [facility] Stent Right: Ureter [employer] UROLOGICAL 04/21/2026 [id number] / / [id number] [employer] Implanted:Qty: 1 on 06/01/2023 by Alejandro Vega MD at [facility] Explanted:Qty: 1 on 06/08/2023 by Alejandro Vega MD at [facility] Stent Right: Ureter [employer] 04/28/2026 [id number] / 6*26 / [id number] Description:no string Procedures Procedure Name Priority Date/Time Associated Diagnosis Comments URINALYSIS Routine 02/21/2025 1:56 PM EDT Burning with urination URINE CULTURE Routine 02/21/2025 1:56 PM EDT Burning with urination from Last 3 Months Results * (ABNORMAL) Urinalysis (02/21/2025 1:56 PM EDT) COLOR Colorless Yellow, Colorless 02/21/2025 5:57 PM EDT [facility] TURBIDITY Clear Clear 02/21/2025 5:57 PM EDT [facility] SPECIFIC GRAVITY 1.006 1.003 - 1.035 02/21/2025 5:57 PM EDT [facility] NITRITE Negative Negative 02/21/2025 5:57 PM EDT [facility] PH,URINE 6.5 5.0 - 8.5 02/21/2025 5:57 PM EDT [facility] LEUKOCYTE ESTERASE Large(A) Negative 02/21/2025 5:57 PM EDT [facility] PROTEIN Negative Negative 02/21/2025 5:57 PM EDT [facility] KETONES (URINE) Negative Negative 5:57 PM EDT [facility] UROBILINOGEN <1.1 eu/dL <1.1 eu/dL 02/21/2025 5:57 PM EDT [facility] BILIRUBIN (URINE) Negative Negative 02/21/2025 5:57 PM EDT [facility] BLOOD/HGB Negative Negative 02/21/2025 5:57 PM EDT [facility] MUCOUS Present(A) None 02/21/2025 5:57 PM EDT [facility] R.B.CELLS <1 0 - 5 02/21/2025 5:57 PM EDT [facility] SQUAMOUS EPITHELIUM <1 0 - 5 02/21/2025 5:57 PM EDT [facility] W.B.CELLS 24(H) 0 - 5 02/21/2025 5:57 PM EDT [facility] GLUCOSE (URINE) Negative Negative 5:57 PM EDT [facility] Urine Collection / Unknown 02/21/2025 1:56 PM EDT 02/21/2025 1:56 PM EDT Colette Blevins NEUROSCIENTIST-DIESEL FLEET MECHANIC URINE ORDERABLES Final R esult [facility] [address] [place] [address], * (ABNORMAL) Urine Culture (02/21/2025 1:56 PM EDT) CULTURE RESULTS >100,000 CFU/mL Klebsiella pneumoniae(A) 02/23/2025 12:14 PM EDT [facility] Urine Urine specimen collection, clean catch / Unknown Collection / Unknown 02/21/2025 1:56 PM EDT 02/21/2025 1:56 PM EDT Narrative Organism Antibiotic Method Susceptibility Klebsiella pneumoniae Ampicillin >=32.0: Resistant Klebsiella pneumoniae AMP/SULBACTAM 8.0: Susceptible Klebsiella pneumoniae PIPERACIL/TAZOBACTAM <=4.0: Susceptible Klebsiella pneumoniae Cefazolin (non-urinary) 2.0: Susceptible Klebsiella pneumoniae Cefazolin (urinary) 2.0: Susceptible Klebsiella pneumoniae Ceftriaxone <=0.25: Susceptible Klebsiella pneumoniae Gentamicin <=1.0: Susceptible Klebsiella pneumoniae Ciprofloxacin <=0.06: Susceptible Klebsiella pneumoniae Levofloxacin <=0.12: Susceptible Klebsiella pneumoniae Nitrofurantoin =128.0: Resistant Klebsiella pneumoniae Trimethoprim + Sulfamethoxazole <=1.0: Susceptible Colette Blevins NEUROSCIENTIST-DIESEL FLEET MECHANIC MICROBIOLOGY - GENERAL O RDERABLES Final Result [facility] [address] [place] [address], [place] [phone] from Last 3 Months Insurance MEDICARE [facility] Advance Directives Documents on File Type Date Recorded Patient Calibration Checker Expl anation Advance Directive 04/17/2023 1:27 PM Care Teams Bridge Crane Operator Relationship Specialty Start Date End Date Anabell Prescott MD [address] [place] [address] PCP - General Family Medicine 06/16/17
--- OUTSIDE RECORDS SUMMARY | 2025-03-03 13:00 | XMS_ITS | Encounter Summary ---
Author Organization [facility] Address [address] [place] [address] Care Team Providers Care Kiln Repairer Name Role Phone Anabell Prescott MD Unavailable [phone] Anabell Prescott MD Primary Care Provider Encounter Details Date Type Department Care Team (Late st Contact Info) Description 02/24/2023 Abstract [facility] [address] [place] [address] Anabell Prescott MD [address] [place], [place] [id number] Social History Tobacco Use Types Packs/Day Years Used Date Smoking Tobacco: Never Assessed Comments Unknown Sex and Gender Information Value Date Recorded Sex Assigned at Female 02/28/2023 3:18 PM EDT Legal Sex Female 6:34 PM EDT Gender Identity Female 02/28/2023 3:18 PM EDT Sexual Orientation Straight 02/28/2023 3: 18 PM EDT documented as of this encounter Plan of Treatment Not on file documented as of this encounter Visit Diagnoses Not on filedocumented in this encounter Care Teams Kiln Repairer Relationship Specialty Start Date End Date Anabell Prescott MD [address] [place] [address] PCP - ACO Reach 02/23/23 Anabell Prescott MD [address] [place] [address] PCP - General Family Medicine 03/09/23 documented as of this encounter
--- OUTSIDE RECORDS SUMMARY | 2025-03-03 13:00 | XMS_ITS | Encounter Summary ---
Author Organization [employer] Address [id number] [address] [place] [address] Care Team Providers Care Tunneling Machine Operator Name Role Phone Anabell Prescott MD Primary Care Provider [phone] Encounter Details Date Type Department Care Team (Late st Contact Info) Description 02/20[facility]20[facility] [address] [place] [address] Sammi Hernandez, [facility] Social History Tobacco Use Types Packs/Day Years [...] AM EDT documented as of this encounter Miscellaneous Notes * Telephone Encounter - Sammi [place], COCKTAIL LOUNGE MANAGER - 02/20/2025 10:37 AM EDT Pt called in stating the doors are locked at [facility], she was scheduled with li at [facility], she was transferred to [facility] to reschedule with the correct location she prefers. Li Blevins SOFTWARE SECURITY ARCHITECT said in epic chat: Can you please find out what she is coming for. IF it is just a UTI, please send her for UA/culturetoday. Thank you I called pt, no answer, LVM asking if she was coming in for UTI related SX, if so we will order UA/Culture. I told her any nurse could help her with this. Im out at noon incase I dont get her call. Pt called back, she is having burning with urination and frequency. I ordered UA/culture. She is asking for ATX with she wont have results until Monday. Please advise * Telephone Encounter - JEFFRY Santana - 02/20/2025 10:37 AM EDT Please let her know I sent Aki to [facility]. She can reschedule in [place] if she would like. I will notify her via MyChart of results on Monday when we returned to the office. She hasany worsening symptoms, I recommend she be seen in the ER. Also, please remind her to give the urine sample before starting antibiotics. Thank you * Addendum Note - Sammi Hernandez CMA - 02/20/2025 10:37 AM EDTAddended by: SAMMI HERNANDEZ on: 02/20/2025 10:43 AM Modules accepted: Orders * Addendum Note - JEFFRY Santana - 02/20/2025 10:37 AM EDTAddended by: LI BLEVINS on: 02/20/2025 11:05 AM Modules accepted: Orders documented in this encounter Plan of Treatment Upcoming Encounters Date Type Department Care Team (Late st Contact Info) Description 10/27/2025 1:15 PM EST Office Visit [facility] [address] [place] [address] [place] [address] [address] Alejandro Vega MD [facility] [place] [place] [address] documented as of this encounter Results * (ABNORMAL) Urinalysis (02/21/2025 1:56 PM EDT) COLOR Colorless Yellow, Colorless 02/21/2025 5:57 PM EDT [facility] TURBIDITY Clear Clear 02/21/2025 5:57 PM EDT [facility] SPECIFIC GRAVITY 1.006 1.003 - 1.035 02/21/2025 5:57 PM EDT [facility] NITRITE Negative Negative 02/21/2025 5:57 PM EDT [facility] PH,URINE 6.5 5.0 - 8.5 02/21/2025 5:57 PM EDT [facility] LEUKOCYTE ESTERASE Large(A) Negative 02/21/2025 5:57 PM EDT [facility] PROTEIN Negative Negative 02/21/2025 5:57 PM EDT [facility] KETONES (URINE) Negative Negative 5:57 PM EDT [facility] UROBILINOGEN <1.1 eu/dL <1.1 eu/dL 02/21/2025 5:57 PM EDT [facility] BILIRUBIN (URINE) Negative Negative 02/21/2025 5:57 PM EDT [facility] BLOOD/HGB Negative Negative 02/21/2025 5:57 PM EDT [facility] MUCOUS Present(A) None 02/21/2025 5:57 PM EDT [facility] R.B.CELLS <1 0 - 5 02/21/2025 5:57 PM EDT [facility] SQUAMOUS EPITHELIUM <1 0 - 5 02/21/2025 5:57 PM EDT [facility] W.B.CELLS 24(H) 0 - 5 02/21/2025 5:57 PM EDT [facility] GLUCOSE (URINE) Negative Negative 5:57 PM EDT [facility] Urine Collection / Unknown 02/21/2025 1:56 PM EDT 02/21/2025 1:56 PM EDT Li Blevins PHOTO MASK CLEANER-METAL POLISHER URINE ORDERABLES Final R esult [facility] [address] [place] [address], * (ABNORMAL) Urine Culture (02/21/2025 1:56 PM EDT) CULTURE RESULTS >100,000 CFU/mL Klebsiella pneumoniae(A) 02/23/2025 12:14 PM EDT [facility] Urine Urine specimen collection, clean catch [...] Klebsiella pneumoniae Trimethoprim + Sulfamethoxazole <=1.0: Susceptible Li Blevins PHOTO MASK CLEANER-METAL POLISHER MICROBIOLOGY - GENERAL O RDERABLES Final Result [facility] [address] [place] [address], documented in this encounter Visit Diagnoses Diagnosis Burning with urination- Primary Dysuria documented in this encounter Care Teams Tunneling Machine Operator Relationship Specialty Start Date End Date Anabell Prescott MD [address] [place] [address] PCP - General Family Medicine 06/16/17 documented as of this encounter
--- OUTSIDE RECORDS SUMMARY | 2025-03-03 13:00 | XMS_ITS | Encounter Summary ---
Author Organization [facility] [facility] tem Address [id number] [address] [place] [address] Care Team Providers Care Glass Lathe Operator Name Role Phone Anabell Prescott MD Primary Care Provider [phone] Encounter Details Date Type Department Care Team (Latest Contact Info) Description 02/19/2025 Travel Social History Tobacco Use Types Packs/Day [...] Visit [facility] [address] [facility] [phone] Alejandro Vega MD [address] [place] [address] documented as of this encounter Visit Diagnoses Not on filedocumented in this encounter Care Teams Glass Lathe Operator Relationship Specialty Start Date End Date Anabell Prescott MD [address] [place] [address] PCP - General Family Medicine 06/16/17 documented as of this encounter
--- OUTSIDE RECORDS SUMMARY | 2025-03-03 13:00 | XMS_ITS | Encounter Summary ---
Author Organization [employer] tem Address [id number] [address] [place] [address] Care Team Providers Care Financial Services Counselor Name Role Phone Anabell Prescott MD Primary Care Provider [phone] Encounter Details Date Type Department Care Team ([facility] Contact Info) Description 08/01/2023 Orders Only [facility] [address] [place] [phone] Kirstin Skaggs Mineral metabolism disorder Social History Tobacco Use Types Packs/Day Years Used Date Smoking Tobacco: Former Cigarettes 1 993 - 1999 Smokeless Tobacco: Never Comments:quit > 20 years ago Alcohol Use Standard Drinks/Week Comments No 0 (1 standard drink = 0.6 oz pur e alcohol) Childcare Answer Date Recorded Childcare Unknown 03/13/2019 Employment Answer Date Recorded Employment Unknown 03/13/2019 Purpose - Life Answer Date Recorded Purpose [...] Upcoming Encounters Date Type Department Care Team ([facility] Contact Info) Description 10/27/2025 1:15 PM EST Office Visit [facility] [address] [place] [address] [place] [address] Alejandro Vega MD [address] [place] [address] documented as of this encounter Procedures Procedure Name Priority Date/Time Associated Diagnosis Comments LITHOLINK 24 HOUR (NON-[place]) Routine 07/25/2023 Mineral metabolism disorder documented in this encounter Results * Litholink 24 Hour (07/25/2023) 07/25/2023 us Alejandro Vega MD URINE ORDERABLES Final Resul t MANUALLY TRANSCRIBED RESULTS documented in this encounter Visit Diagnoses Diagnosis Mineral metabolism disorder Unspecified disorder of mineral metabolism documented in this encounter Care Teams Financial Services Counselor Relationship Specialty Start Date End Date Anabell Prescott MD [address] [place] [address] PCP - General Family Medicine 06/16/17 documented as of this encounter
--- OUTSIDE RECORDS SUMMARY | 2025-03-03 13:00 | XMS_ITS | Encounter Summary ---
Author Organization [facility] Address [address] [place] [address] Care Team Providers Care Plastic Tile Layer Name Role Phone Anabell Prescott MD Unavailable [phone] Anabell Prescott MD Primary Care Provider [phone] Encounter Details Date Type Department Care Team (Late st Contact Info) Description 05/17/2023 Abstract [facility] [address] [place] [address] Anabell Prescott MD [address] [place] [address] Social History Tobacco Use Types Packs/Day Years [...] on filedocumented in this encounter Care Teams Plastic Tile Layer Relationship Specialty Start Date End Date Anabell Prescott MD [address] [place] [address] PCP - ACO Reach 02/23/23 Anabell Prescott MD [address] [place] [address] PCP - General Family Medicine 03/09/23 documented as of this encounter
--- OUTSIDE RECORDS SUMMARY | 2025-03-03 13:00 | XMS_ITS | Encounter Summary ---
Author Organization [email or web address] Address [id number] [address] [place] [address] Care Team Providers Care Envelope Stamping Machine Operator Name Role Phone Anabell Prescott MD Primary Care Provider [phone] Reason for Visit * Reason Comments Med Refill Encounter Details Date Type Department Care Team (Late st Contact Info) Description 07/01/2023 Refill [facility] [address] [place] [address] [place] [address] [phone] Alejandro Vega MD [address] [place] [address] Stress incontinence of urine Social History Tobacco Use Types Packs/Day Years Used Date Smoking Tobacco: Former Cigarettes 1 993 - 2000 Smokeless Tobacco: Never Comments:quit > 20 years [...] Encounters Date Type Department Care Team (Late Contact Info) Description 10/27/2025 1:15 PM EST Office Visit [facility] [address] [place] [address] [place] [address] [phone] Alejandro Vega MD [address] [place] [address] documented as of this encounter Visit Diagnoses Diagnosis Stress incontinence of urine documented in this encounter Care Teams Envelope Stamping Machine Operator Relationship Specialty Start Date End Date Anabell Prescott MD [address] [place] [address] PCP - General Family Medicine 06/16/17 documented as of this encounter
--- OUTSIDE RECORDS SUMMARY | 2025-03-03 13:00 | XMS_ITS | Clinical Summary ---
Author Organization [facility] Address [address] [place] [address] Care Team Providers Care Piper Helper Name Role Phone Unavailable Primary Care Provider [...] Orientation Not on file Plan of Treatment Health Maintenance Due Date Last Done Comments CT Colonography 1954 Colonoscopy 1954 Colorectal Cancer Screening 1954 FIT-DNA 1954 FIT 1954 FOBT 1954 Sigmoidoscopy 1954 Depression Screening 1966 Adult Tetanus 1976 Mammogram 1994 Zoster Vaccines (1 of 2) 2004 Fall Risk Screening 12/12/2019 Pneumococcal Vaccine: 65+ Ye ars (1 of 1 - PCV) 12/12/2019 COVID-19 Vaccine (2023-2 5 season) 2024 Influenza Vaccine (Season Ended) 2025 HIB Vaccines Aged Out No longer eligi ble based on patient's age to complete this topic HPV Vaccines Aged Out No longer eligi ble based on patient's age to complete this topic IPV Vaccines Aged Out No longer eligi ble based on patient's age to complete this topic Meningococcal B Vaccine Aged Out No l onger eligible based on patient's age to complete this topic Meningococcal Vaccine Aged Out No kalpana umesh eligible based on patient's age to complete this topic Rotavirus Vaccines Aged Out No longer eligible based on patient's age to complete this topic
--- OUTSIDE RECORDS SUMMARY | 2025-03-03 13:00 | XMS_ITS | Encounter Summary ---
Author Organization [facility] Address [address] [place] [address] Care Team Providers Care Police Surgeon Name Role Phone Anabell Prescott MD Unavailable [phone] Anabell Prescott MD Primary Care Provider Encounter Details Date Type Department Care Team (Late st Contact Info) Description 05/17/2023 Abstract [facility] [address] [place] [address] Anabell Prescott MD [address] [place] [address] Social History Tobacco Use Types [...] on filedocumented in this encounter Care Teams Police Surgeon Relationship Specialty Start Date End Date Anabell Prescott MD [address] [place] [address] PCP - ACO Reach 02/23/23 Anabell Prescott MD [address] [place] [address] PCP - General Family Medicine 03/09/23 documented as of this encounter
--- OUTSIDE RECORDS SUMMARY | 2025-03-03 13:00 | XMS_ITS | Encounter Summary ---
Author Organization [facility] Address [address] [place] [address] Care Team Providers Care Industrial Photographer Name Role Phone Anabell Prescott MD Unavailable [phone] Anabell Prescott MD Primary Care Provider Encounter Details Date Type Department Care Team (Late st Contact Info) Description 06/21/2023 Abstract [facility] [address] [place] [address] Anabell Prescott MD [address] [place] [address] Social History Tobacco Use Types Packs/Day Years Used Date Smoking Tobacco: Never Smokeless Tobacco: Never Alcohol Use Standard Drinks/Week Comments Not Currently 0 (1 standard drink = 0.6 oz pure alcohol) caffeine: 1-2 cups per day tea PHQ-2 Answer Date Recorded Patient Health Questionnaire-2 Score 2 06/15/2023 Comments Unknown Sex and Gender Information Value [...] Assessment Noted Time PHQ-9 Depression Total Score: 9 06/15/20 23 2:15 PM EDT documented as of this encounter Care Teams Industrial Photographer Relationship Specialty Start Date End Date Anabell Prescott MD [address] [facility] [place] [address] PCP - ACO Reach 02/23/23 Anabell Prescott MD [address] [facility] [place] [address] PCP - General Family Medicine 03/09/23 documented as of this encounter
--- OUTSIDE RECORDS SUMMARY | 2025-03-03 13:00 | XMS_ITS ---
Author Organization [facility] Address [address] [place] [address] Care Team Providers Care Carver And Checkerer Specials Name Role Phone Anabell Prescott MD Unavailable [phone] Anabell Prescott MD Primary Care Provider [phone] Chronic Care Management (CCM) Status:Enrolled (Active) Start date:02/16/2023 Enrollment date:02/16/2023 Case Team Name Relationship Phone Fer oSler LPN(Responsible Staff) Clinical Ad vocate [phone] Continued Care and Services Coordination
--- OUTSIDE RECORDS SUMMARY | 2025-03-03 13:01 | XMS_ITS | Encounter Summary ---
Author Organization [employer] Address [id number] [address] [place] [address] Care Team Providers Care Distillery Manager Name Role Phone Anabell Prescott MD Primary Care Provider [phone] Encounter Details Date Type Department Care Team (Late st Contact Info) Description 02/16/2023 [facility] [address] [place], [place] [phone] Pauline Stiles PA [address] [place] [id number] Social History Tobacco Use Types Packs/Day Years Used Date Smoking Tobacco: Former Cigarettes 1 99 - 1999 Smokeless Tobacco: Never Comments:quit > [...] encounter Miscellaneous Notes * Telephone Encounter - BALJIT Gil - 02/16/2023 6:20 PM EDT Please schedule her for a CT scan. I will call her with the results. Thank you documented in this encounter Plan of Treatment Upcoming Encounters Date Type Department Care Team (Late st Contact Info) Description 10/27/2025 1:15 PM EST Office Visit [facility] [address] [place] [address] [place] [address] Alejandro Vega MD [address] [place] [address] documented as of this encounter Visit Diagnoses Diagnosis Kidney stones- Primary Calculus of kidney documented in this encounter Care Teams Distillery Manager Relationship Specialty Start Date End Date Anabell Prescott MD [address] [place], [place] [phone] PCP - General Family Medicine 06/16/17 documented as of this encounter
--- OUTSIDE RECORDS SUMMARY | 2025-03-03 13:01 | XMS_ITS | Encounter Summary ---
Author Organization [employer] Address [id number] [address] [place] [address] Care Team Providers Care Senior Marketing Associate Name Role Phone Anabell Prescott MD Primary Care Provider [phone] Reason for Visit * Reason Onset Date Comments Med Refill 07/12/2022 Encounter Details Date Type Department Care Team (Late st Contact Info) Description 07/12/2022 Refill [facility] [address] [place] [address] [place] [address] [place] [address] Nivia Dubois CMA Stress incontinence of urine (Primary Dx) Social History Tobacco Use Types [...] Orientation Straight 01/02/2023 9: 46 AM EDT COVID-19 Exposure Response Date Recorded In the last month, have you been in contact with someone who was confirmed or suspected to have Coronavirus / COVID-19? No / Unsure 06/13/2022 12:54 PM EDT documented as of this encounter Plan of Treatment Upcoming Encounters Date Type Department Care Team (Late st Contact Info) Description 10/27/2025 1:15 PM EST Office Visit [facility] [address] [place] [address] [place] [address] Alejandro Vega MD [address] [place] [address] documented as of this encounter Visit Diagnoses Diagnosis Stress incontinence of urine- Primary documented in this encounter Care Teams Senior Marketing Associate Relationship Specialty Start Date End Date Anabell Prescott MD [address] [place], [place] [phone] PCP - General Family Medicine 06/16/17 documented as of this encounter
--- OUTSIDE RECORDS SUMMARY | 2025-03-03 13:01 | XMS_ITS | Encounter Summary ---
Author Organization [facility] Address [address] [place] [address] Care Team Providers Care Welder Shielded Metal Arc Name Role Phone Anabell Prescott MD Unavailable [phone] Anabell Precsott MD Primary Care Provider [phone] Encounter Details Date Type Department Care Team (Late st Contact Info) Description 05/09/2023 Orders Only [facility] [address] [place] [address] Anabell Prescott MD [address] [place] [address] Social History Tobacco Use Types [...] Procedure Name Priority Date/Time Associated Diagnosis Comments XR CHEST 1 VIEW Routine 05/09/2023 3:44 PM EDT documented in this encounter Results * XR chest 1 view (05/09/2023 3:44 PM EDT) Anatomical Region Laterality Modality Chest Radiographic Sunshine ging Anabell Prescott MD IMG XR PROCEDURES Final Resul t documented in this encounter Visit Diagnoses Not on filedocumented in this encounter Care Teams Welder Shielded Metal Arc Relationship Specialty Start Date End Date Anabell Prescott MD [address] [place] [address] PCP - ACO Reach 02/23/23 Anabell Prescott MD [address] [place] [address] PCP - General Family Medicine 03/09/23 documented as of this encounter
--- OUTSIDE RECORDS SUMMARY | 2025-03-03 13:01 | XMS_ITS | Encounter Summary ---
Author Organization [facility] Address [address] [place] [address] Care Team Providers Care Tram Inspector Name Role Phone Anabell Prescott MD Unavailable [phone] Anabell Prescott MD Primary Care Provider [phone] Reason for Visit * Reason Comments Med Refill Encounter Details Date Type Department Care Team (Late st Contact Info) Description 06/27/2023 Refill [facility] [address] [place] [address] Anabell Prescott MD [address] [place], [place] [phone] Other gastritis without hemorrhage, unspecified chronicity (Primary Dx) Social History Tobacco Use Types Packs/Day Years Used Date Smoking Tobacco: Never Smokeless Tobacco: Never Alcohol Use Standard Drinks/Week Comments Not Currently 0 (1 standard drink = 0.6 oz pure alcohol) caffeine: 1-2 cups per day tea PHQ-2 Answer Date Recorded Patient Health Questionnaire-2 Score 3 06/30/2023 Comments Unknown Sex and Gender Information Value Date Recorded Sex Assigned at Female 02/28/2023 3:18 PM EDT Legal Sex Female 6:34 PM EDT Gender Identity Female 02/28/2023 3:18 PM EDT Sexual Orientation Straight 02/28/2023 3: 18 PM EDT Occupation Industry Job Start Date Job End Date retiredd Not on file Not on file Not on file documented as of this encounter Functional Status * Over the past 2 weeks, how often have you been bothered by any of the following problems? Question Answer Date of Assessment Author Patient Health Questionnaire-2 Score 3 06/03 4:00 PM Alejandrina De La Torre NP * If you checked off any problems on this questionnaire so far, Question Answer Date of Assessment Author How difficult have these problems made it for you to do your work, take care of things at home, or get along with other people? Somewhat difficult 06/30/2023 4:00 PM RICARDOT Alejandrina Olson N P * Over the last 2 weeks, how often have you been bothered by any of the following problems? Question Answer Date of Assessment Author Feeling nervous, anxious, or on edge 2 06/03 4:00 PM Alejandrina De La Torre NP Not being able to stop or co ntrol worrying 3 06/30/2023 4:00 PM Alejandrina De La Torre N P Worrying too much about diff erent things 2 06/30/2023 4:00 PM Alejandrina De La Torre N P Trouble relaxing 2 06/30/2023 4:00 PM RICARDOT Alejandrina Florence NP Being so restless that it is hard to sit still 3 06/30/2023 4:00 PM Alejandrina De La Torre N P Becoming easily annoyed or irritable 3 06/03 4:00 PM Alejandrina De La Torre NP Feeling afraid as if somethi ng awful might happen 1 06/30/2023 4:00 PM Alejandrina De La Torre N P BRYSON-7 Total Score 16 06/30/2023 4:00 PM Alejandrina De La Torre NP * Over the past 2 weeks, how often have you been bothered by any of the following problems? Question Answer Date of Assessment Author Little interest or pleasure in doing things Several days 06/30/2023 4:00 PM Tracy De La Torre NP Feeling down, depressed, or hopeless More than half the days 06/30/2023 4:00 PM Alejandrina De La Torre NP Trouble falling or staying asleep, or sleeping too much Several days 06/30/2023 4:00 PM EDT Alejandrina Olson N P Feeling tired or having little energy More than half the days 06/30/2023 4:00 PM EDT Alejandrina Olson NP Poor appetite or overeating More than half the days 06/30/2023 4:00 PM EDT Alejandrina Olson NP Feeling bad about yourself - or that you are a failure or have let yourself or your family down Not at all 06/30/2023 4:00 PM EDT Alejandrina Olson N P Trouble concentrating on things, such as reading the newspaper or watching television More than half the days 06/30/2023 4:00 PM EDT Alejandrina Olson NP Moving or speaking so slowly that other people could have noticed? Or the opposite - being so fidgety or restless that you have been moving around a lot more than usual. Not at all 06/30/2023 4:00 PM EDT Alejandrina Olson N P Thoughts that you would be better off or hurting yourself in some way Not at all 06/30/2023 4:00 PM EDT Alejandrina Olson NP Patient Health Questionnaire-9 Score 10 06/30/2023 4:00 PM EDT Alejandrina Olson NP documented as of this encounter Miscellaneous Notes * Telephone Encounter - Anabell Prescott MD - 06/27/2023 1:23 PM EDT Approving, but needs appt for additional refills. documented in this encounter Plan of Treatment Not on file documented as of this encounter Visit Diagnoses Diagnosis Other gastritis without hemorrhage, unspecified chronicity- Primary documented in this encounter Additional Health Concerns Assessment Noted Time PHQ-9 Depression Total Score: 9 06/15/20 23 2:15 PM EDT documented as of this encounter Care Teams Tram Inspector Relationship Specialty Start Date End Date Anabell Prescott MD [address] [place], [place] [id number] PCP - ACO Reach 02/23/23 Anabell Prescott MD [address] [place] [address] PCP - General Family Medicine 03/09/23 documented as of this encounter
--- OUTSIDE RECORDS SUMMARY | 2025-03-03 13:01 | XMS_ITS | Encounter Summary ---
Author Organization [facility] Address [id number] [address] [place] [address] Care Team Providers Care Tank Washer Name Role Phone Anabell Prescott MD Primary Care Provider [phone] Encounter Details Date Type Department Care Team (Late Contact Info) Description 06/01/2021 Orders Only [facility] [address] [place] [address] Sharifa Kirstin Kidney stones; Mineral metabolism disorder Social History Tobacco Use Types Packs/Day Years Used Date Smoking Tobacco: Former Cigarettes 1 3 - 1999 Smokeless Tobacco: Never Comments:quit > [...] have Coronavirus / COVID-19? No / Unsure 06/02/2021 12:46 PM EDT documented as of this encounter Plan of Treatment Upcoming Encounters Date Type Department Care Team (Late Contact Info) Description 10/27/2025 1:15 PM EST Office Visit [facility] [address] [address] [place] [address] Alejandro Vega MD [facility] [place] [address] documented as of this encounter Procedures Procedure Name Priority Date/Time Associated Diagnosis Comments LITHOLINK 48 HOUR Routine 05/18/2021 Kidney stones Mineral metabolism disorder documented in this encounter Results * Litholink 48 Hour (05/18/2021) 05/18/2021 us Alejandro Vega MD URINE ORDERABLES Final Resul t MANUALLY TRANSCRIBED RESULTS documented in this encounter Visit Diagnoses Diagnosis Kidney stones Calculus of kidney 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
--- OUTSIDE RECORDS SUMMARY | 2025-03-03 13:01 | XMS_ITS | Encounter Summary ---
Author Organization [facility] Address [address] [place] [address] Care Team Providers Care Managed Services Consultant Name Role Phone Anabell Prescott MD Unavailable [phone] Anabell Prescott MD Primary Care Provider [phone] Encounter Details Date Type Department Care Team (Late st Contact Info) Description 12/29/2024 Abstract [facility] [address] [place] [address] Anabell Prescott MD [address] [place] [address] Social History Tobacco Use Types Packs/Day Years Used Date Smoking Tobacco: Never Smokeless Tobacco: Never Alcohol Use Standard Drinks/Week Comments Not Currently 0 (1 standard drink = 0.6 oz pure alcohol) Caffeine intake : 1 cups per day tea/coffee Humiliation, Afraid, Rape, and Kick questionnair e [...] week 10/09/2023 How often do you attend [facility] or gnosticism services? More than 4 times per year 10/09/2023 Do you belong to any clubs o r organizations such as congregation groups, unions, fraternal or athletic groups, or [...] Recorded Patient Health Questionnaire-2 Score 0 02/19/2024 [facility] - Occupational Stress [...] place to sleep or slept in a prison (including now)? No 10/09/2023 Comments Unknown Sex [...] documented as of this encounter Care Teams Managed Services Consultant Relationship Specialty Start Date End Date Anabell Prescott MD [address] [place] [address] PCP - ACO Reach 02/23/23 Anabell Prescott MD [address] [place] [address] PCP - General Family Medicine 03/09/23 documented as of this encounter
--- OUTSIDE RECORDS SUMMARY | 2025-03-03 13:01 | XMS_ITS | Clinical Summary ---
Author Organization [facility] Address [address] [place] [address] Phone Care Team Providers Care Childcare Center Director Name Role Phone Anabell Prescott MD Primary Care Provider [phone] Social History Tobacco Use Types Packs/Day Years Used Date Smoking Tobacco: Never Assessed Comments Unknown Sex and Gender Information Value Date Recorded Sex Assigned at Not on file Legal Sex Female 11:33 AM EST Gender Identity Not on file Sexual Orientation Not on file Plan of Treatment Not on file Care Teams Childcare Center Director Relationship Specialty Start Date End Date Anabell Prescott MD [address] [place] [address] PCP - General 10/04/16
--- OUTSIDE RECORDS SUMMARY | 2025-03-03 13:01 | XMS_ITS | Encounter Summary ---
Author Organization [employer] [facility] tem Address [id number] [address] [place] [address] Care Team Providers Care Plumbing Foreman Name Role Phone Anabell Prescott MD Primary Care Provider [phone] Reason for Visit * Reason Onset Date Comments Results 01/17/2023 Encounter Details Date Type Department Care Team (Late st Contact Info) Description 01/17/2023 [facility]phone [facility] [address] [phone] Hyacinth Clement, RN Results Social History Tobacco Use Types Packs/Day Years Used Date Smoking Tobacco: Former Cigarettes 1 - 1999 Smokeless Tobacco: Never Comments:quit > [...] have Coronavirus / COVID-19? No / Unsure 01/02/2023 11:56 AM EDT documented as of this encounter Miscellaneous Notes * Telephone Encounter - Hyacinth Clement RN - 01/17/2023 9:04 AM EDT ----- Message from Neto Varela MD sent at 01/17/2023 8:15 AM EDT ----- Mild soft plaque. No significant stenosis. Would recommend Lipitor 20 mg p.o. nightly. * Telephone Encounter - JEFFRY Landaverde - 01/17/2023 9:04 AM EDT signed documented in this encounter Plan of Treatment Upcoming Encounters Date Type Department Care Team (Late st Contact Info) Description 10/27/2025 1:15 PM EST Office Visit [facility] [address] [place] [address] [place] [address] Alejandro Vega MD [address] [place] [address] documented as of this encounter Visit Diagnoses Not on filedocumented in this encounter Care Teams Plumbing Foreman Relationship Specialty Start Date End Date Anabell Prescott MD [address] [place] [address] PCP - General Family Medicine 06/16/17 documented as of this encounter
--- OUTSIDE RECORDS SUMMARY | 2025-03-03 13:01 | XMS_ITS | Encounter Summary ---
Author Organization [facility] [employer] Address [facility]-[id number] [address] [place] [address] Care Team Providers Care Family Educator Name Role Phone Anabell Prescott MD Primary Care Provider [phone] Encounter Details Date Type Department Care Team (Late st Contact Info) Description 12/29/2022 Orders Only [facility] [address] [place] [phone] Elida Tejeda, MATERIAL SPREADER-TREE SPECIALIST [address] [place] [address] Social History Tobacco Use Types Packs/Day Years [...] have Coronavirus / COVID-19? No / Unsure 12/13/2022 9:13 AM EDT documented as of this encounter Plan of Treatment Upcoming Encounters Date Type Department Care Team (Late st Contact Info) Description 10/27/2025 1:15 PM EST Office Visit [facility] [address] [place] [address] [place] [address] Alejandro Vega MD [facility] [place] [address] documented as of this encounter Visit Diagnoses Not on filedocumented in this encounter Care Teams Family Educator Relationship Specialty Start Date End Date Anabell Prescott MD [address] [place] [address] PCP - General Family Medicine 06/16/17 documented as of this encounter
--- OUTSIDE RECORDS SUMMARY | 2025-03-03 13:01 | XMS_ITS | Clinical Summary ---
Author Organization [facility] Healthcare Address [address] [place] [address] Care Team Providers Care Private Watchman Name Role Phone Anabell Prescott MD Unavailable Anabell Prescott MD Primary Care Provider [phone] Allergies Active Allergy Reactions Criticality Noted Date Comments Latex 04/17/2023 rash Pollen Extract Unknown 03/09/2023 Medications Milk Thistle 500 MG capsule as directed Orally Active oxaprozin (Daypro) 600 MG tablet Take 600 mg by mouth in the morning and 600 mg in the evening. Take with meals. 023 Active Flovent HFA 110 MCG/ACT inhalerIndications:Mode rate persistent asthma with exacerbation (CMS/HCC) inhale 1 puff by mouth every 12 hours and INTO THE LUNGS Rinse mouth after use 36 g 023 Active ferrous gluconate (Fergon) 324 (38 Fe) MG tablet Take 324 mg by mouth in the morning. Take with meals. Active rizatriptan (Maxalt) 5 MG tabletIndications:Migra ine with aura and without status migrainosus, not intractable (CMS/HCC) Take 1 tablet (5 mg) by mouth 1 (one) time if needed for migraine May repeat in 2 hours if unresolved. Do not exceed 20 mg in 24 hours. 9 tablet 024 Active alendronate (Fosamax) 70 MG tablet Take 70 mg by mouth 1 (one) time per week Active Linzess 290 MCG capsule Take 290 mcg by mouth in the morning. Active traMADol (Ultram) 50 MG tablet Take 50 mg by mouth 2 (two) times a day as needed Active methylPREDNISolone (Medrol Dospak) 4 MG tabletsIndications:Caps ulitis of metatarsophalangeal (MTP) joint of right foot Take as directed on package. 21 tablet Active Additional Information Patient not taking.Reported on 02/06/2025 albuterol HFA 90 mcg/act inhalerIndications:Mild intermittent asthma without complication (CMS/HCC) Inhale 2 puffs every 6 (six) hours if needed for shortness of breath or wheezing 18 g 025 Active traZODone (Desyrel) 50 MG tabletIndications:Insom kiko, unspecified type Take 1 tablet (50 mg) by mouth at bedtime 90 tablet 1 025 Active omeprazole (PriLOSEC) [address] capsuleIndications:Othe r gastritis without hemorrhage, unspecified chronicity take 1 capsule by mouth once daily Orally Once a day 100 capsule 1 025 Active tolterodine LA (Detrol LA) 4 MG 24 hr capsuleIndications:Urin josefina frequency Take 1 capsule (4 mg) by mouth in the morning. 90 capsule 2 025 Active levothyroxine (Synthroid, Levoxyl) 88 MCG tabletIndications:Acqui red hypothyroidism (CMS/HCC) TAKE 1 TABLET BY MOUTH IN THE MORNING 90 tablet 2 025 Active FLUoxetine (PROzac) 20 MG capsuleIndications:Edith r depressive disorder, recurrent episode, moderate (CMS/HCC) TAKE 1 CAPSULE BY MOUTH DAILY 90 capsule 2 025 Active doxycycline (Vibra-Tabs) 100 MG tablet Take 100 mg by mouth in the morning and 100 mg before bedtime. 025 Active HYDROcodone-acetaminoph en (Willis) 5-325 MG tablet take 1 TO 2 TABLETS BY MOUTH EVERY 4 TO 6 HOURS NEEDED FOR PAIN 025 Active atorvastatin (Lipitor) 20 MG tabletIndications:Pure hypercholesterolemia (CMS/HCC) Take 1 tablet (20 mg) by mouth Daily 90 tablet 1 025 Active atorvastatin (Lipitor) 20 MG tablet Take 20 mg by mouth in the morning. 023 2024 Disconti nued(Reo rder) Active Problems Problem Noted Date Diagnosed Date Chronic pain 03/14/2024 Cervical spine arthritis 03/09/2023 History of parathyroidectomy 03/09/2023 Hyperparathyroidism 03/09/2023 Nontoxic single thyroid nodule 03/09/2023 Vitamin D deficiency 03/09/2023 Major depressive disorder, recurrent episode, mo derate 03/02/2023 Primary insomnia 09/04/2020 Tension headache 05/25/2020 Migraine with aura and witho ut status migrainosus, not intractable 05/02/2020 Pure hypercholesterolemia 11/15/2019 Acquired hypothyroidism 10/31/2019 Chronic fatigue 09/30/2019 History of hysterectomy 08/17/2019 Class 1 obesity 08/16/2019 Slow transit constipation 04/23/2019 Gastritis 11/08/2018 Assessment & Plan (10/10/2023 7:35 PM EST): Continue omeprazole. Gastroesophageal reflux disease without esophagi tis 12/15/2017 Mild intermittent asthma 11/16/2017 Mixed anxiety and depressive disorder 08/17/2015 Resolved Problems Problem Noted Date Diagnosed Date Resolved Date Abdominal pain 10/23/2023 02/19/2024 Arthritis of finger 10/23/2023 02/19/20 24 Cervical adenopathy 10/23/2023 02/19/20 24 Mass of finger 10/23/2023 02/19/2024 Postoperative pain of extremity 10/23/2023 02/19/2024 06/30/2023 08/13/2023 Cardiomegaly 03/09/2023 08/13/2023 Hypocalcemia 03/09/2023 02/19/2024 Intrinsic asthma with acute exacerbation 03/09/2023 03/22/2023 Menopausal flushing 03/09/2023 08/13/20 23 Paresthesia of skin 03/09/2023 02/19/20 24 Sacroiliac inflammation 03/09/2023 05 Anxiety 03/02/2023 02/19/2024 Atypical chest pain 12/13/2022 03/22/20 23 Vasomotor rhinitis 08/04/2021 CSF rhinorrhea 07/29/2021 02/19/2024 Dizziness 07/29/2021 03/22/2023 High frequency sensorineural hearing loss of left ear 06/16/2021 08/13/2023 Benign paroxysmal positional vertigo 06/08/2021 08/16/2024 Mineral metabolism disorder 04/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 Parathyroid hormone. Repeat serum calcium. Anxiety disorder 12/23/2020 03/22/2023 Stress incontinence 10/28/2020 08/13/20 23 Hypercalcemia 09/14/2020 02/19/2024 Cervical spondylosis without myelopathy 06/04/2020 02/19/2024 Gastroesophageal reflux dise ase with esophagitis 05/25/2020 02/19/2024 Skin sensation disturbance 03/17/2020 0 02/19/2024 Sinusitis 10/09/2019 03/22/2023 Dysuria 07/26/2019 07/21/2023 Diverticular disease of colon 06/17/2019 02/19/2024 Sensorineural hearing loss, bilateral 01/02/2019 08/13/2023 Moderate recurrent major depression 07/03/2018 02/19/2024 Increased urinary frequency 05/23/2018 03/22/2023 Overview (03/09/2023): ====10/28/20==== recent issues with stress incontinence and [...] report her symptoms are stable and acceptable Last Assessment & Plan: We will schedule her to see Dr. Vega in about 1-2 months. I asked her to call sooner if any problems. Kidney stones 05/23/2018 02/19/2024 Overview (03/09/2023): ====02/15/23==== recent right-sided back pain. We will [...] yet. Will obtain KUB in 6 months Last Assessment & Plan: She says she does have some tramadol on hand in case it is needed. Anxiety state 11/16/2017 03/22/2023 Atypical angina 10/26/2017 02/19/2024 Constipation 10/17/2017 02/19/2024 Urge incontinence of urine 08/19/2017 1 10/13/2022 Vocal cord nodules 06/07/2017 4 Menopausal symptom 12/28/2016 3 Mild persistent asthma with exacerbation 10/07/2015 03/22/2023 Encounters Date Type Department Care Team Description 02/07/2025 Results Follow-Up [facility] [address] [place] [phone] Alejandrina Olson NP Pure hypercholesterolemia (CMS/HCC) (Primary Dx) 02/06/2025 11:00 AM EDT Office Visit [facility] [address] [place] [phone] Patricia Knott NP Primary insomnia (Primary Dx); Mild intermittent asthma without complication (CMS/HCC); Gastroesophageal reflux disease without esophagitis; Slow transit constipation; Acquired hypothyroidism (CMS/HCC); Class 1 obesity; Hyperparathyroidism (CMS/HCC); Medicare annual wellness visit, subsequent; Vitamin D deficiency; Migraine with aura and without status migrainosus, not intractable (CMS/HCC); Mixed anxiety and depressive disorder; History of hysterectomy; Screening mammogram for breast cancer; Fatigue, unspecified type; Screening for lipid disorders 02/06/2025 Bamboo flowsheet [facility] [address] [place] [address] Patricia Knott NP 02/06/2025 Travel 01/13/2025 [facility] [address] [place] [phone] Erin Peter NP Acquired hypothyroidism (CMS/HCC); Major depressive disorder, recurrent episode, moderate (CMS/HCC) 01/13/2025 [facility] [address] [place] [address] Anabell Prescott MD Urinary frequency 12/31/[address] [facility] [address] [place] [phone] Fer Soler LPN 12/29/2024 Abstract [place] [address] [place] [address] Anabell Prescott MD 12/19/2024 11:00 AM EDT Office Visit [facility] [address] [place] [address] Patricia Knott NP Acquired hypothyroidism (CMS/HCC) (Primary Dx); Overweight 12/19/2024 Bamboo flowsheet [facility] [address] [place] [address] Patricia Knott NP 12/19/2024 Travel 12/12/[address] [facility] [address] [place] [phone] Fer Soler LPN from Last 3 Months Immunizations Immunization Administration Dates Next Due Influenza Whole 06/15/2015 Influenza, High Dose Seasona l, Preservative Free 07/01/2024,06/04/2020 Influenza, Seasonal, Quadriv alent, Adjuvanted 06/29/2023,07/19/2022,08/10/2021 Influenza, injectable, quadrivalent 07/03/2018 Influenza, injectable, quadr ivalent, preservative free 06/20/2019,07/13/2017,06/14/2017,06/22,05/27/2016,06/16/2015 Influenza, seasonal, injecta ble, preservative free 07/06/2012 Moderna Bivalent Booster Vaccination 07/28/2022 Moderna SARS-CoV-2 Vaccination 02/04/2021,2020 Pneumococcal Conjugate PCV 13 06/30/2015 Pneumococcal Polysaccharide PPSV23 09/04/2020 RSV, recombinant, protein lazo bunit RSVpreF, adjuvant reconstitu, 120mcg/0.5mL, PF (Arexvy) 06/28/2023 SARS-COV-2 (COVID-19) vaccin e, mRNA, spike protein, LNP, bivalent, PF 07/28/2022 SARS-COV-2 (COVID-19) vaccin e, mRNA, spike protein, LNP, bivalent, preservative free, 30 mcg/0.3 mL dose, krystyna-sucrose formulation 06/12/2023 Tdap 11/08/2013,10/02/1997 Zoster, Recombinant 09/19/2022,07/19/2022 Zoster, live 04/28/2014 Family History Medical History Relation Name Comments recovering alcoholic Brother 1 1 broth er MVA Brother 2 Cancer Father Medardo mcpherson Prostate cancer Father Medardo mcpherson Stomach cancer Father Medardo mcpherson Nervous breakdown Maternal Grandmother Cancer Mother Concepcion mcpherson Throat cancer Mother Concepcion mcpherson Heart attack Son 2 Relation Name Status Comments Brother 1 Alive 3 brothers Brother 2 1 brother Daughter Alive 2 daughters Father Medardo mcpherson Alive Maternal Grandfather Maternal Grandmother Mother Concepcion mcpherson Paternal Grandfather Paternal Grandmother Sister 2 sisters Son 1 Alive Son 2 Social History Tobacco Use Types Packs/Day Years Used Date Smoking Tobacco: Never Smokeless Tobacco: Never Tobacco Cessation:Counseling Given: Not Answered Alcohol Use Standard Drinks/Week Comments Not Currently [...] 10/09/2023 How often do you attend [facility] or confucianism services? More than 4 times per year 10/09/2023 Do you belong to any clubs o r organizations such as judaism groups, unions, fraternal or athletic groups, or [...] Date Recorded Patient Health Questionnaire-2 Score 0 02/06/2025 [facility] - Occupational [...] place to sleep or slept in a longterm (including now)? No 10/09/2023 Comments Unknown Sex and Gender Information Value Date Recorded Sex Assigned at Female 02/28/2023 3:18 PM EDT Legal Sex Female 6:34 PM EDT Gender Identity Female 02/28/2023 3:18 PM EDT Sexual Orientation Straight 02/28/2023 3: 18 PM EDT Occupation Industry Job Start Date Job End Date retiredd Not on file Not on file Not on file Last Filed Vital Signs Vital Sign Reading Time Taken Comments Blood Pressure 128/82 02/06/2025 10:58 AM EDT Pulse 78 02/06/2025 10:58 AM EDT Temperature 37.2 C (98.9 F) 09/16/2024 11:35 AM EST Respiratory Rate 18 02/06/2025 10:58 AM EDT Oxygen Saturation 98% 02/06/2025 10:58 AM EDT Inhaled Oxygen Concentration - - Weight 71.7 kg (158 lb) 02/06/2025 10:58 AM EDT Height 157.5 cm (5' 2 ) 02/06/2025 10:58 AM EDT Body Mass Index 28.9 02/06/2025 10:58 AM EDT Plan of Treatment Health Maintenance Due Date Last Done Comments CT Colonography 1954 FIT-DNA 1954 FIT 1954 FOBT 1954 Sigmoidoscopy 1954 Mammogram 03/26/2025 03/26/2024, 01/2023, 03/21/2023, Additional history exists Medicare Annual Wellness (AWV) 02/06/2026 0 02/06/2025, 02/06/2025, 02/19/2024, Additional history exists Colonoscopy 11/17/2031 11/17/2021, 11/02, 11/17/2021, Additional history exists Colorectal Cancer Screening 11/17/2031 Pneumococcal Vaccine: 65+ Years Completed , 06/30/2015 Influenza Vaccine Completed 07/01/2024, , 07/19/2022, Additional history exists Procedures Procedure Name Priority Date/Time Associated Diagnosis Comments VITAMIN B12 Routine 02/06/2025 11:21 AM EDT Fatigue, unspecified type TSH W/REFLEX TO FT4 Routine 02/06/2025 1 1:21 AM EDT Fatigue, unspecified type LIPID PANEL Routine 02/06/2025 11:21 AM EDT Screening for lipid disorders CBC (INCLUDES DIFF/PLT) Routine 02/06/2025 11:21 AM EDT Fatigue, unspecified type COMPREHENSIVE METABOLIC PANEL Routine 02/06/2025 11:21 AM EDT Hyperparathyroidism (CMS/HCC) TSH W/REFLEX TO FT4 Routine 12/19/2024 1 1:06 AM EDT Acquired hypothyroidism (CMS/HCC) BI MAMMOGRAM SCREENING TOMOSYNTHESIS BILATERAL Routine 03/26/2024 2:33 PM EDT Breast screening Encounter for screening mammogram for malignant neoplasm of breast COLONOSCOPY Routine 11/17/2021 12:00 PM EST from Last 3 Months or Most Recently Relevant to Health Maintenance Results * TSH W/REFLEX TO FT4 (02/06/2025 11:21 AM EDT) Only the most recent of2 resultswithin the time period is included. TSH W/REFLEX TO FT4 1.07 0.40 - 4.50 mIU/L [facility] 02/06/2025 11:2 1 AM EDT 02/06/2025 11:22 AM EDT Narrative Resulting Agency Comment Performing Organization Information Site ID: QPT Name: [facility] Address: [address] [place] [address], [address] [place] [phone] Director: Natalio Dotson MD us Patricia Knott NP LAB BLOOD ORDERABLES Fi nal Result [facility] * CBC and differential (02/06/2025 11:21 AM EDT) WHITE BLOOD CELL COUNT 5.1 3.8 - 10.8 Thousand/u L [facility] RED BLOOD CELL COUNT 3.98 3.80 - 5.10 Million/uL [facility] HEMOGLOBIN 12.3 11.7 - 15.5 g/dL [facility] HEMATOCRIT 37.3 35.0 - 45.0 % [facility] MCV 93.7 80.0 - 100.0 fL [facility] MCH 30.9 27.0 - 33.0 pg [facility] MCHC 33.0 32.0 - 36.0 g/dL [facility] Comment: For adults, a slight decrease in the calculated MCHC value (in the range of 30 to 32 g/dL) is most likely not clinically significant; however, it should be interpreted with caution in correlation with other red cell parameters and the patient's clinical condition. RDW 12.4 11.0 - 15.0 % [facility] PLATELET COUNT 371 140 - 400 Thousand/u L [facility] MPV 10.2 7.5 - 12.5 fL [facility] ABSOLUTE NEUTROPHILS 2,632 1,500 - 7,800 cells/uL [facility] ABSOLUTE LYMPHOCYTES 1,561 850 - 3,900 cells/uL [facility] ABSOLUTE MONOCYTES 607 200 - 950 cells/uL [facility] ABSOLUTE EOSINOPHILS 230 15 - 500 cells/uL [facility] ABSOLUTE BASOPHILS 71 0 - 200 cells/uL [facility] NEUTROPHILS 51.6 % [facility] LYMPHOCYTES 30.6 % [facility] MONOCYTES 11.9 % [facility] EOSINOPHILS 4.5 % [facility] BASOPHILS 1.4 % [facility] Blood Venous blood specimen / Unknown 02/06/2025 11:21 AM EDT 02/06/2025 11:22 AM EDT Narrative Resulting Agency Comment Performing Organization Information Site ID: QPT Name: [facility] Address: [address] [place] [address], [address] [place] [phone] Director: Natalio Dotson MD Patricia Knott ACID OPERATOR LAB BLOOD ORDERABLES Fi nal Result Performing Organization Address [facility] de Phone Number [facility] * Vitamin B12 (02/06/2025 11:21 AM EDT) Pathologist [facility] VITAMIN B12 430 200 - 1,100 pg/mL [facility] Blood Venous blood specimen / Unknown 02/06/2025 11:21 AM EDT 02/06/2025 11:22 AM EDT Narrative Resulting Agency Comment Performing Organization Information Site ID: QPT Name: [facility] Address: [address] [place] [address], [address] [place] [phone] Director: Natalio Dotson MD Patricia Knott ACID OPERATOR LAB BLOOD ORDERABLES Fi nal Result Performing Organization Address [facility] Co de Phone Number [facility] * (ABNORMAL) Lipid panel (02/06/2025 11:21 AM EDT) CHOLESTEROL, TOTAL 237(H) <200 mg/dL [facility] HDL CHOLESTEROL 49(L) > OR = 50 mg/dL [facility] TRIGLYCERIDES 119 <150 mg/dL [facility] LDL-CHOLESTEROL 164(H) mg/dL (calc) [facility] Comment: Reference range: <100 Desirable range <100 mg/dL for primary prevention; <70 mg/dL for patients with CHD or diabetic patients with > or = 2 CHD risk factors. LDL-C is now calculated using the Luis F calculation, which is a validated novel method providing better accuracy than the Friedewald equation in the estimation of LDL-C. Leon SS et al. VISHAL. 2013;310(15): 3543-3201 (http://education.Hatsize/faq/RAZ947) CHOL/HDLC RATIO 4.8 <5.0 (calc) [facility] NON HDL CHOLESTEROL 188(H) <130 mg/dL (calc) [facility] Comment: For patients with diabetes plus 1 major ASCVD risk factor, treating to a non-HDL-C goal of <100 mg/dL (LDL-C of <70 mg/dL) is considered a therapeutic option. Blood Venous blood specimen / Unknown 02/06/2025 11:21 AM EDT 02/06/2025 11:22 AM EDT Narrative Resulting Agency Comment Performing Organization Information Site ID: QPT Name: [facility] Address: [address] [place] [address], [address] [place] [phone] Director: Natalio Dotson MD Patricia Knott NP LAB BLOOD ORDERABLES Fi nal Result [facility] * Comprehensive metabolic panel (02/06/2025 11:21 AM EDT) [facility] Glucose 84 65 - 99 mg/dL [facility] Comment: Fasting reference interval BUN 16 7 - 25 mg/dL [facility] Creatinine 0.70 0.60 - 1.00 mg/dL [facility] EGFR 93 > OR = 60 mL/min/1. 73m2 [facility] BUN/CREATININE RATIO SEE NOTE: (calc) [facility] Comment: Not Reported: BUN and Creatinine are within reference range. Sodium 137 135 - 146 mmol/L [facility] Potassium, Bld 4.2 3.5 - 5.3 mmol/L [facility] Chloride 100 98 - 110 mmol/L [facility] Carbon Dioxide 29 20 - 32 mmol/L [facility] Calcium 9.7 8.6 - 10.4 mg/dL [facility] PROTEIN, TOTAL 7.3 6.1 - 8.1 g/dL [facility] ALBUMIN 4.3 3.6 - 5.1 g/dL [facility] GLOBULIN 3.0 1.9 - 3.7 g/dL (calc) [facility] ALBUMIN/GLOBULIN RATIO 1.4 1.0 - 2.5 (calc) [facility] BILIRUBIN, TOTAL 0.6 0.2 - 1.2 mg/dL [facility] ALKALINE PHOSPHATASE 67 37 - 153 U/L [facility] AST 20 10 - 35 U/L [facility] ALT 10 6 - 29 U/L [facility] Blood Venous blood specimen / Unknown 02/06/2025 11:21 AM EDT 02/06/2025 11:22 AM EDT Narrative Resulting Agency Comment Performing Organization Information Site ID: QPT Name: [facility] Address: [address] [place] [address], [address] [place] [phone] Director: Natalio Dotson MD Patricia Knott NP LAB BLOOD ORDERABLES Fi nal Result [facility] * Bilateral screening mammogram with tomosynthesis (03/26/2024 2:33 PM EDT) Anatomical Region Laterality Modality Breast Bilateral Mammography 03/26/2024 2:36 PM EDT Impressions 03/27/2024 8:11 AM EDT BIRADS 2 - Benign Follow-up: Routine Screening Mamm Board Certified Radiologists. Accredited by the ACR and FDA. MAMMOGRAPHY IS VERY IMPORTANT TO YOUR HEALTH. THE [employer] GUIDELINES RECOMMEND THAT WOMEN 40 YEARS OF AGE AND OLDER SHOULD HAVE A MAMMOGRAM EVERY YEAR. A REMINDER LETTER WILL BE SENT AT THE APPROPRIATE TIME. THIS FACILITY UTILIZES A REMINDER SYSTEM TO ENSURE ALL PATIENTS RECEIVE REMINDER NOTIFICATIONS AT THE APPROPRIATE TIME BASED ON THE RECOMMENDATIONS OF THIS EXAM. THIS INCLUDES REMINDERS FOR ROUTINE SCREENING MAMMOGRAMS, DIAGNOSTIC MAMMOGRAMS IN WHICH THE PATIENT IS ASKED TO RETURN FOR ADDITIONAL VIEWS, OR OTHER BREAST IMAGING INTERVENTIONS WHEN APPROPRIATE. THE PATIENT WILL BE PLACED IN THE APPROPRIATE REMINDER SYSTEM INCLUDING A REMINDER AT THE APPROPRIATE TIME FOR ANY PENDING ADDITIONAL VIEWS. TRANSCRIBED BY: ELECTRONICALLY SIGNED BY: Anibal Victoria MD Narrative 03/27/2024 8:11 AM EDT EXAMINATION: BI MAMMOGRAM SCREENING TOMOSYNTHESIS BILATERAL CLINICAL HISTORY:screening COMPARISON: September 05, March 21, 2023 RESULT: Density: Almost entirely fatty [1] There is no suspicious mass, asymmetry, architectural distortion, or calcification. Mildly asymmetric nodular central upper breast fibroglandular tissue right greater than left. Overall appearance stable. Typically benign calcifications. No significant axillary lymphadenopathy. Procedure Note Anibal Victoria MD - 03/27/2024 EXAMINATION: BI MAMMOGRAM SCREENING TOMOSYNTHESIS BILATERAL CLINICAL HISTORY:screening COMPARISON: September 05, March 21, 2023 RESULT: Density: Almost entirely fatty [1] There is no suspicious mass, asymmetry, architectural distortion, orcalcification. Mildly asymmetric nodular central upper breastfibroglandular tissue right greater than left. Overall appearancestable. Typically benign calcifications. No significant axillary lymphadenopathy. IMPRESSION: BIRADS 2 - Benign Follow-up: Routine Screening Mamm Board Certified Radiologists. Accredited by the ACR and FDA. MAMMOGRAPHY IS VERY IMPORTANT TO YOUR HEALTH. THE [employer]UIDELINES RECOMMEND THAT WOMEN 40 YEARS OF AGE AND OLDER SHOULD HAVE AMAMMOGRAM EVERY YEAR. A REMINDER LETTER WILL BE SENT AT THE APPROPRIATE TIME. THIS FACILITYUTILIZES A REMINDER SYSTEM TO ENSURE ALL PATIENTS RECEIVE REMINDERNOTIFICATIONS AT THE APPROPRIATE TIME BASED ON THE RECOMMENDATIONS OF THISEXAM. THIS INCLUDES REMINDERS FOR ROUTINE SCREENING MAMMOGRAMS, DIAGNOSTICMAMMOGRAMS IN WHICH THE PATIENT IS ASKED TO RETURN FOR ADDITIONAL VIEWS,OR OTHER BREAST IMAGING INTERVENTIONS WHEN APPROPRIATE. THE PATIENT WILLBE PLACED IN THE APPROPRIATE REMINDER SYSTEM INCLUDING A REMINDER AT THEAPPROPRIATE TIME FOR ANY PENDING ADDITIONAL VIEWS. TRANSCRIBED BY: ELECTRONICALLY SIGNED BY: Anibal Victoria MD Alejandrina Olson NP [facility] BI PROCEDURES Final Result * Colonoscopy (11/17/2021 12:00 PM EST) Anatomical Region Laterality Modality Endoscopy 11/17/2021 12:0 0 PM EST Narrative 11/17/2021 12:00 PM EST PERFORMED AT [facility] LOCATION:[id number] Procedure Note CONVERSION, GENERIC - 02/15/2023 PERFORMED AT [facility] LOCATION:[id number] us Anabell Prescott MD ENDOSCOPY PROCEDURE ORDERABLE S Final Result from Last 3 Months or Most Recently Relevant to Health Maintenance Insurance MEDICARE [facility] Care Teams Private Watchman Relationship Specialty Start Date End Date Anabell Prescott MD [address] [facility] [place] [address] PCP - ACO Reach 02/23/23 Anabell Prescott MD [address] [facility] [place] [address] PCP - General Family Medicine 03/09/23
--- OUTSIDE RECORDS SUMMARY | 2025-03-03 13:01 | XMS_ITS | Encounter Summary ---
Author Organization [employer] Address [id number] [address] [place] [address] Care Team Providers Care Diesel Engine Operator Name Role Phone Anabell Prescott MD Primary Care Provider [phone] Reason for Visit * Reason Comments Med Refill Encounter Details Date Type Department Care Team (Late st Contact Info) Description 01/12/2022 Refill [facility] [address] [place] [address] [place] [phone] Pauline Stiles I, PA [address] [place] [address] Social History Tobacco Use Types Packs/Day Years [...] Office Visit [facility] [address] [place] [address] [place] [phone] Alejandro Vega MD [address] [place] [phone] documented as of this encounter Visit Diagnoses Not on filedocumented in this encounter Care Teams Diesel Engine Operator Relationship Specialty Start Date End Date Anabell Prescott MD [address] [place] [address] PCP - General Family Medicine 06/16/17 documented as of this encounter
--- OUTSIDE RECORDS SUMMARY | 2025-03-03 13:01 | XMS_ITS | Clinical Summary ---
Author Organization [facility] Address [address] [place] [address] Care Team Providers Care Store Receiving Specialist Name Role Phone Anabell Stauffer MD Primary Care Prov ider Allergies No known active allergies Medications Diclofenac Sodium (PENNSAID) 2 % Solution topical solution Apply 2 pumps topically to affected area as needed, BID. 1 Bottle 3 8 Active albuterol 108 (90 Base) MCG/ACT Aero Soln inhaler Inhale 2 puffs. Active ammonium lactate 12 % Cream cream 0 7 Active citalopram 40 MG Tab Take 40 mg by mouth. Active estradiol 0.5 MG Tab 0 8 Active gabapentin 100 MG Cap capsule 0 8 Active hydrochlorothiazi de 25 MG Tab 0 8 Active levothyroxine 75 MCG Tab tablet Take 75 mcg by mouth. Active meloxicam 15 MG Tab tablet Take 15 mg by mouth. Active tolterodine 2 MG Tab Take 2 mg by mouth. Active Diclofenac Sodium (PENNSAID) 2 % Solution topical solutionIndicatio ns:Closed nondisplaced fracture of left patella, unspecified fracture morphology, initial encounter Apply 2 pumps topically to affected area as needed, BID. 1 Bottle 3 8 Active Diclofenac Sodium (PENNSAID) 2 % Solution topical solutionIndicatio ns:Closed nondisplaced fracture of left patella, unspecified fracture morphology, initial encounter Apply 2 pumps topically to affected area as needed, BID. 1 Bottle 3 8 Active diclofenac sodium [address] Take 50 mg by mouth 2 times daily. Active METHYLPREDNISOLON E 4 MG Tab Therapy Pack tabletIndications :Patellar tendinitis of left knee Take 1 tablet by mouth As directed. follow package directions 21 tablet 8 Active dexamethasone 4 MG/ML Solution injectionIndicati ons:Patellar tendinitis of left knee 1 mL by Other route As directed for 18 doses. (1 cc 3 x a week at physical therapy via iontophoresis) for up to 18 doses. 30 mL 8 Active Family History Medical History Relation Name Comments Cancer- Other Father Cancer- Other Mother Relation Name Status Comments Father Mother Social History Tobacco Use Types Packs/Day Years Used Date Smoking Tobacco: Former Cigarettes Smokeless Tobacco: Never Alcohol Use Standard Drinks/Week Comments No 0 (1 standard drink = 0.6 oz pur e alcohol) Comments Unknown Sex and Gender Information Value Date Recorded Sex Assigned at Not on file Legal Sex Female 3:07 PM EDT Gender Identity Female Sexual Orientation Not on file Last Filed Vital Signs Vital Sign Reading Time Taken Comments Blood Pressure - - Pulse - - Temperature 36.7 C (98.1 F) 07/13/2018 4:25 PM EDT Respiratory Rate - - Oxygen Saturation - - Inhaled Oxygen Concentration - - Weight 76.2 kg (168 lb) 07/13/2018 4:25 PM EDT Height 152.5 cm (5' 0.05 ) 07/13/2018 4:25 PM ED T Body Mass Index 32.76 07/13/2018 4:25 PM EDT Plan of Treatment Health Maintenance Due Date Last Done Comments DEXA SCAN DISCUSSION 1955 HEPATITIS C VIRUS SCREENING 1955 CERVICAL CANCER SCREENING DISCUSSION 12/12/1975 LIPID SCREENING 1994 COLORECTAL CANCER SCREENING DISCUSSION 11/17/2022 11/17/2021, 06/06/2019 TETANUS 11/08/2023 11/08/2013, 10/02/1997 MAMMOGRAM SCREENING DISCUSSION 03/21/2024 03/21/2023, 03/10/2022, 03/08/2021, Additional history exists COVID-19 VACCINE ( season) 2024 06/12/2023, 07/28/2022 INFLUENZA VACCINE (Season Ended) 2025 06/29/2023, 07/19/2022, 08/10/2021, Additional history exists TDAP (ADULT) Completed 11/08/2013, 10/02/1997 PNEUMOCOCCAL VACCINE SERIES Completed 09/04/2020, 0 06/30/2015 ZOSTER (SHINGLES) VACCINE Completed 2021, 07/19/2022, 04/28/2014 RSV VACCINE Completed 06/28/2023 HEP B VACCINE Aged Out No longer elig iberic based on patient's age to complete this topic Care Teams Store Receiving Specialist Relationship Specialty Start Date End Date Anabell Stauffer MD [address] [place] [address] PCP - General Family Medicine 02/02/17
--- OUTSIDE RECORDS SUMMARY | 2025-03-03 13:01 | XMS_ITS | Encounter Summary ---
Author Organization [facility] Address [id number] [address] [facility] [place] [address] Care Team Providers Care Geotechnical Department Manager Name Role Phone Anabell Prescott MD Primary Care Provider [phone] Encounter Details Date Type Department Care Team (Late st Contact Info) Description 12/05/2022 Abstract [facility] [address] [facility] [address] [address] Neto Varela MD [address] [place] [address] Social History Tobacco Use Types Packs/Day Years [...] have Coronavirus / COVID-19? No / Unsure 12/06/2022 2:27 PM EST documented as of this encounter Plan of Treatment Upcoming Encounters Date Type Department Care Team (Late st Contact Info) Description 10/27/2025 1:15 PM EST Office Visit [facility] [address] [place] [address] [place] [address] [phone] Alejandro Vega MD [address] [place] [phone] documented as of this encounter Visit Diagnoses Not on filedocumented in this encounter Care Teams Geotechnical Department Manager Relationship Specialty Start Date End Date Anabell Prescott MD [address] [place], [place] [id number] PCP - General Family Medicine 06/16/17 documented as of this encounter
--- OUTSIDE RECORDS SUMMARY | 2025-03-03 13:01 | XMS_ITS | Encounter Summary ---
Author Organization [facility] Address [address] [place] [address] Care Team Providers Care Tobacco Grower Name Role Phone Anabell Prescott MD Unavailable [phone] Anabell Prescott MD Primary Care Provider [phone] Encounter Details Date Type Department Care Team (Late st Contact Info) Description 04/28/2023 Abstract [facility] [address] [place] [address] Anabell Prescott MD [address] [place] [address] Social History Tobacco Use Types [...] on filedocumented in this encounter Care Teams Tobacco Grower Relationship Specialty Start Date End Date Anabell Prescott MD [address] [place] [address] PCP - [facility] Re[facility] 02/23/23 Anabell Prescott MD [address] [place] [address] PCP - General Family Medicine 03/09/23 documented as of this encounter
--- NOTE | 2025-03-03 13:07 | XR_ITS ---
[place] [id number] Patient Name: DAISY CARLSON MRN: [id number] date: 1955 Sex: F Assigned Patient Location: ER Current Patient Location: ER Accession/Order Number: [id number] Exam Date: 03/03/2025 14:11 Report Date: 03/03/2025 14:12 At the request of: LUKE NGUYEN MD Procedure: XR ankle LT 2V XR ankle LT 2V 03/03/2025 1:32 PM SIGNS AND SYMPTOMS: Acute left leg pain after fall PROTOCOL: Frontal and lateral radiographs of the left ankle COMPARISON: None FINDINGS: The ankle mortise is preserved. There is no evidence of fracture. No soft tissue swelling. XR/XR ankle LT 2V IMPRESSION: No acute bony injury. Impression dictated by: Aris Cunha M.D. 03/03/2025 2:12 PM Dictation Location: [place] [address] Electronically authenticated by: [id number] Y Date: 03/03/2025 14:12
--- NOTE | 2025-03-03 13:07 | XR_ITS ---
[facility] [place] [id number] Patient Name: DAISY CARLSON MRN: [id number] date: 1955 Sex: F Assigned Patient Location: ER Current Patient Location: ER Accession/Order Number: [id number] Exam Date: 03/03/2025 14:10 Report Date: 03/03/2025 14:11 At the request of: LUKE NGUYEN MD Procedure: XR knee LT 2V XR knee LT 2V 03/03/2025 1:32 PM SIGNS AND SYMPTOMS: Fall, acute left leg pain PROTOCOL: Frontal and lateral radiographs of the left knee COMPARISON: None FINDINGS: There is total left knee arthroplasty hardware with evidence of prior revision. No fracture. No hardware complication. No soft tissue swelling. XR/XR knee LT 2V IMPRESSION: No acute bony injury. 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 Impression dictated by: Aris Cunha M.D. 03/03/2025 2:11 PM Dictation Location: [place] [address] Electronically authenticated by: [id number] Y Date: 03/03/2025 14:11
--- NOTE | 2025-03-03 13:07 | XR_ITS ---
[facility] [place] [id number] Patient Name: DAISY CARLSON MRN: [id number] date: 1955 Sex: F Assigned Patient Location: ER Current Patient Location: ER Accession/Order Number: [id number] Exam Date: 03/03/2025 14:12 Report Date: 03/03/2025 14:12 At the request of: LUKE NGUYEN MD Procedure: XR tibia fibula LT 2V XR tibia fibula LT 2V 03/03/2025 1:32 PM SIGNS AND SYMPTOMS: Acute left leg pain after fall PROTOCOL: Frontal and lateral radiographs of the left tibia and fibula COMPARISON: None FINDINGS: Soft tissue swelling is noted posteriorly. There is total left knee arthroplasty. There is no evidence of fracture. XR/XR tibia fibula LT 2V IMPRESSION: No fracture. Soft tissue swelling is noted along the posterior aspect of the calf/lower leg. Impression dictated by: Aris Cunha M.D. 03/03/2025 2:12 PM Dictation Location: [place] [address] Electronically authenticated by: [id number] Y Date: 03/03/2025 14:12
[2025-03-03] MEDS: KETOROLAC TROMETHAMINE 30 MG/ML VIAL IM (13:46)
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
== END 2025-03-03 14:48 | disposition home or self-care (01) ==
PROVIDERS: Emergency Provider Emergency Medicine; PCP Family Medicine
DX: S80.12XA Contusion of left lower leg, initial encounter (principal); V28.01XA Electric (assisted) bicycle driver injured in noncollision transport accident in nontraffic accident, initial encounter; Z96.652 Presence of left artificial knee joint
CPT/HCPCS: 73560; 73590; 73600; 96372; 99285; J1885